=== PATIENT | female | born 1970 | race Caucasian/White ===

== ENCOUNTER 2019-06-10 07:07 | Emergency (ER) | payer OTHER ==
--- NOTE | 2019-06-10 08:46 | RADIOLOGY REPORT (SQ) ---
EXAM DESCRIPTION: CHEST 2 VIEWS IMAGES COMPLETED DATE/TIME: 06/10/2019 8:32 am REASON FOR STUDY: Hemoptysis COMPARISON: None. EXAM PARAMETERS: NUMBER OF VIEWS: two views TECHNIQUE: Digital Frontal and Lateral radiographic views of the chest acquired. RADIATION DOSE: NA LIMITATIONS: none FINDINGS: LUNGS AND PLEURA: No opacities, masses or pneumothorax. No pleural effusion. MEDIASTINUM AND HILAR STRUCTURES: No masses or contour abnormalities. HEART AND VASCULAR STRUCTURES: Heart normal size. No evidence for failure. BONES: Serpiginous thoracolumbar curvature. HARDWARE: None in the chest. OTHER: No other significant finding. IMPRESSION: NO ACUTE RADIOGRAPHIC FINDING IN THE CHEST. TECHNICAL DOCUMENTATION: JOB ID: [id number] 2010 [employer]- All Rights Reserved Reading location - IP/workstation name: [email or web address]
[2019-06-10 08:59] LABS: HEMATOCRIT 31.1 % (36.0-47.0); HEMOGLOBIN 10.8 g/dL (12.0-15.5); MEAN CORPUSCULAR HEMOGLOBIN 36.9 pg (27.0-33.4); MEAN CORPUSCULAR HGB CONC 34.8 g/dL (32.0-36.0); MEAN CORPUSCULAR VOLUME 106 fl (80-97); RED BLOOD COUNT 2.94 10^6/uL (3.72-5.28); RED CELL DISTRIBUTION WIDTH 16.5 % (11.5-14.0); WHITE BLOOD COUNT 2.2 10^3/uL (4.0-10.5)
[2019-06-10 09:00] LABS: INTERNATIONAL RATION (INR) 1.11; PROTHROMBIN TIME 14.3 SEC (11.4-15.4)
[2019-06-10 09:03] LABS: D-DIMER 0.54 ug/mL (0.00-0.50)
[2019-06-10 09:20] LABS: ALBUMIN 3.8 g/dL (3.5-5.0); ALKALINE PHOSPHATASE 47 U/L (38-126); ANION GAP 6 (5-19); ASPARTATE AMINO TRANSFERASE 28 U/L (14-36); BILIRUBIN,TOTAL 0.7 mg/dL (0.2-1.3); BLOOD UREA NITROGEN 14 mg/dL (7-20); CALCIUM 8.8 mg/dL (8.4-10.2); CARBON DIOXIDE 26 mmol/L (22-30); CHLORIDE 105 mmol/L (98-107); GLUCOSE 85 mg/dL (75-110); POTASSIUM 4.3 mmol/L (3.6-5.0); TOTAL PROTEIN 6.8 g/dL (6.3-8.2)
[2019-06-10 09:27] LABS: PLATELET COUNT 91 10^3/uL (150-450)
[2019-06-10 09:28] LABS: ABSOLUTE LYMPHOCYTES# (MANUAL) 1.6 10^3/uL (0.5-4.7); ANISOCYTOSIS SLIGHT; BASOPHILS % (MANUAL) 0 % (0-2); EOSINOPHILS % (MANUAL) 0 % (0-6); LYMPHOCYTES % (MANUAL) 72 % (13-45); MONOCYTES % (MANUAL) 0 % (3-13); NUCLEATED RED BLOOD CELLS 2 /100 WBC (0); PLATELET COMMENT DECREASED; POLYCHROMASIA SLIGHT; SEGMENTED NEUTROPHILS % (MAN) 26 % (42-78); TOTAL CELLS COUNTED 100
[2019-06-10 10:13] LABS: ABSOLUTE RETICS # 0.077 10^6/uL (0.028-0.122); RETICULOCYTE COUNT (AUTO) 2.57 % (0.66-2.85)
[2019-06-10 10:19] LABS: IRON(TIBC) 131.9 ug/dL (37-170)
--- NOTE | 2019-06-10 10:45 | RADIOLOGY REPORT (SQ) ---
EXAM DESCRIPTION: CTA CHEST IMAGES COMPLETED DATE/TIME: 06/10/2019 10:22 am REASON FOR STUDY: Hemoptysis, elevated d-dimer COMPARISON: Same day radiograph TECHNIQUE: CT scan of the chest performed using helical scanning technique with dynamic intravenous contrast injection. Images reviewed with lung, soft tissue and bone windows. Reconstructed coronal and sagittal MPR images reviewed. Additional 3 dimensional post-processing performed to develop Maximal Intensity Projection images (NH P). All images stored on PACS. All CT scanners at this facility use dose modulation, iterative reconstruction, and/or weight based d osing when appropriate to reduce radiation dose to as low as reasonably achievable (ALARA). [facility]: Dose Right [facility]: CareDose [facility]: Dose Right [facility]: Teradose 4D [facility]: Deltagen CONTRAST TYPE AND DOSE: contrast/concentration: Isovue mg/ml; Total Contrast Delivered: 66.0 ml; To clarisse Saline Delivered: 80.0 ml Contrast bolus optimized for the pulmonary arteries. Not diagnostic for the aorta. RENAL FUNCTION: Creatinine 0.76 RADIATION DOSE: CT Rad equipment meets quality standard of care and radiation dose reduction techniq ues were employed. CTDIvol: 19.5 - 19.8 mGy. DLP: 659 mGy-cm. . LIMITATIONS: None. FINDINGS: LUNGS AND PLEURA: Scattered irregular nodular opacities within the lingula and right lower lobe. Largest focal nodular opacity measures 17 x 11 mm (series 4, image 46) within the right lower lobe. No pleural effusion or pneumothorax. AORTA AND GREAT VESSELS: No aneurysm. No dissection. HEART: Normal right to left ventricular ratio. Normal heart size. No pericardial effusion. No signi ficant coronary artery calcifications. PULMONARY ARTERIES: No evidence of central or lobar pulmonary embolus. Evaluation of segmental conso le segmental branches limited secondary to contrast bolus. HILAR AND MEDIASTINAL STRUCTURES: No mediastinal, hilar or axillary adenopathy. HARDWARE: None in the chest. UPPER ABDOMEN: Marked splenomegaly measuring 18 cm maximally. No other acute findings. THYROID AND OTHER SOFT TISSUES: Asymmetric soft tissue density within the left breast measuring appro ximately 2.4 cm (series 3, image 20). Unremarkable thyroid. BONES: No acute bony abnormality. No discrete lytic or blastic osseous lesions. 3D MIPS: Confirm above findings. OTHER: No other significant finding. IMPRESSION: 1. No evidence of pulmonary embolus. 2. Scattered nodular opacities greatest within the lingula and right lower lobe possibly infectious/ inflammatory although underlying lesion is not excluded. The largest discrete area within the right lower lobe measuring up to 17 mm. Recommend short-term follow-up as below. 3. Marked splenomegaly, etiology uncertain. Lymphoproliferative disorders should be considered. 4. Asymmetric soft tissue density within the left breast. Recommend correlation with mammographic h istory. Findings conveyed to Dr. Marie at 1030 hours on 06/10/2019. COMMENT: F[place]CHNER CRITERIA FOR FOLLOW-UP OF PULMONARY NODULES Incidentally detected new nodules in persons 35 or older. HIGH RISK: History of smoking or other known risk factors. >8 mm single solid nodule: LOW and HIGH RISK: consider CT, PET/CT or biopsy at 3 mo. Quality ID # [id number]: Final reports with documentation of one or more dose reduction techniques (e.g., Au tomated exposure control, adjustment of the mA and/or kV according to patient size, use of iterative reconstruction technique) TECHNICAL DOCUMENTATION: JOB ID: [id number] 2010 [employer]- All Rights Reserved Reading location - IP/workstation name: [email or web address]
[2019-06-10 11:52] VITALS: BP 131/59
[2019-06-10 12:38] LABS: PATH REVIEW PATHOLOGIST REVIEWED
--- NOTE | 2019-06-10 13:17 | ER Document Report ---
Entered by JOHNATHAN COKER SCRIBE 06/10/19 0806 Acting as scribe for:MARINA DHILLON MD ED General - General Chief Complaint: Coughing up blood Stated Complaint: COUGHING UP BLOOD Time Seen by Provider: 06/10/19 07:38 Information source: Patient Notes: This 49-year-old female presents to the emergency department complaining of hemoptysis that began this morning. Patient explains that she woke up this morning and noticed a mild wheeze. Patient states that when she coughed, she "spit into the sink and it was blood". Patient describes the blood as bright red and reports 4-5 episodes of hemoptysis this morning. Patient mentions that she felt a "gurgling in my chest" which was better after coughing. Patient's last normal menstrual period was 04/19/2019. Patient denies fever. - Related Data Allergies/Adverse Reactions: No Known Allergies Allergy (Unverified 06/10/19 10:18) Home Medications: Synthroid. Prozac. Claritin. Multi-vitamin Past Medical History - General Information source: Patient - Social History Smoking Status: Never Smoker Cigarette use (# per day): No Chew tobacco use (# tins/day): No Frequency of alcohol use: Social Drug Abuse: None Family History: Reviewed & Not Pertinent Patient has homicidal ideation: No - Medical History Medical History: Negative EENT Medical History: Reports: Other - Environmental Allergies Endocrine Medical History: Reports: Hx Hypothyroidism Renal/ Medical History: Reports: Hx Ovarian Cysts Psychiatric Medical History: Reports: Hx Depression Past Surgical History: Reports: Hx Genitourinary Surgery - Ovarian cyst removal Review of Systems - Review of Systems Constitutional: See HPI. denies: Fever EENT: No symptoms reported Cardiovascular: No symptoms reported Respiratory: See HPI, Cough, Hemoptysis, Wheezing Gastrointestinal: No symptoms reported Genitourinary: No symptoms reported Female Genitourinary: See HPI, Last menstrual period Musculoskeletal: No symptoms reported Skin: No symptoms reported Hematologic/Lymphatic: No symptoms reported Neurological/Psychological: No symptoms reported -: Yes All other systems reviewed and negative Physical Exam - Vital signs Vitals: Temp Pulse Resp BP Pulse Ox 98.0 F 76 16 130/88 H 100 06/10/19 07:10 06/10/19 07:10 06/10/19 07:10 06/10/19 07:10 06/10/19 07:10 - Notes Notes: Physical Exam: General: Alert, appears well. HEENT: Normocephalic. Atraumatic. PERRL. Extraocular movements intact. Oropharynx clear. Inner nostril has no evidence of bleeding bilaterally. Neck: Supple. Non-tender. Respiratory: No respiratory distress. Clear and equal breath sounds bilaterally. No rhonchi. When asked to cough, cough was non-productive and clear. Cardiovascular: Regular rate and rhythm. Abdominal: Normal Inspection. Non-tender. No distension. Normal Bowel Sounds. Back: No gross abnormalities. Extremities: Moves all four extremities. Upper extremities: Normal inspection. Normal ROM. Lower extremities: Normal inspection. No edema. Normal ROM. Neurological: Normal cognition. AAOx4. Normal speech. Psychological: Normal affect. Normal Mood. Skin: Warm. Dry. Normal color. Course - Vital Signs Vital signs: Temp Pulse Resp BP Pulse Ox 98.0 F 76 16 130/88 H 100 06/10/19 07:13 06/10/19 07:10 06/10/19 07:10 06/10/19 07:10 06/10/19 07:10 - Laboratory Result Diagrams: 06/10/19 08:42 06/10/19 08:42 Laboratory results interpreted by me: 06/10/19 06/10/19 08:42 08:42 WBC 2.2 L RBC 2.94 L Hgb 10.8 L Hct 31.1 L MCV 106 H MCH 36.9 H RDW 16.5 H Plt Count 91 L Seg Neuts % (Manual) 26 L Lymphocytes % (Manual) 72 H Monocytes % (Manual) 0 L Abs Neuts (Manual) 0.6 L Abs Monocytes (Manual) 0.0 L D-Dimer 0.54 H - Diagnostic Test Radiology reviewed: Image reviewed, Reports reviewed - CTA chest shows scattered nodular opacities greatest in the lingula and right lower lobe. The largest discrete area is measuring up to 17 mm. There is also marked splenomegaly. There is an asymmetric soft tissue density within the left breast. - Consults Dr. Gabriel Consulted provider: follow-up in office - Will see in the office on 06/15/2019 at 10:15 AM. Discharge - Discharge Clinical Impression: Hemoptysis, Pulmonary nodules/lesions, multiple, Splenomegaly, Thrombocytopenia, Macrocytic anemia Neutropenia Qualifiers: Neutropenia type: unspecified Qualified Code(s): D70.9 - Neutropenia, unspecified Condition: Stable Disposition: HOME, SELF-CARE Additional Instructions: Hemoptysis Hemoptysis (coughing up blood) can occur with many different diseases. Most commonly, it's due to an infection such as bronchitis. Although alarming, the presence of blood in the phlegm doesn't change the treatment of bronchitis or pneumonia. The physician has evaluated you to see if there is evidence of an underlying problem requiring further evaluation. If he has recommended further tests, you should follow up as instructed. Hemoptysis without an identifiable cause can be due to tumors or hidden infections. Return for a recheck if the blood increases greatly in amount, or if you develop shortness of breath, high fever, severe chest pain, or other alarming new symptoms. Your work-up today revealed a blood disorders showing a macrocytic anemia, neutropenia, and thrombocytopenia. This means abnormally large red blood cells, abnormally low number of neutrophil white blood cells and an abnormally low number of platelets. The CT scan showed scattered nodular opacities in the right lung, a very enlarged spleen, and a soft tissue density in the left breast. I have scheduled an appointment for you with Dr. Gabriel with [facility] oncology for June 15, 2019 at 10:15 AM. Try to get copies of your lab work that was done while you lived in [place]. RETURN TO THE EMERGENCY ROOM IF ANY NEW OR WORSENING SYMPTOMS. Referrals: PRECIOUS GABRIEL MD [ACTIVE STAFF] - 06/15/19 10:15 am I personally performed the services described in the documentation, reviewed and edited the documentation which was dictated to the scribe in my presence, and it accurately records my words and actions.
== END 2019-06-10 11:52 | disposition home or self-care (01) ==
LOC: ER 07:07
DX: R04.2 Hemoptysis (principal); R91.8 Other nonspecific abnormal finding of lung field; R16.1 Splenomegaly, not elsewhere classified; D69.6 Thrombocytopenia, unspecified; D53.9 Nutritional anemia, unspecified; D70.9 Neutropenia, unspecified; R06.2 Wheezing
CPT/HCPCS: 36415; 71046; 71275; 80053; 82607; 82728; 82746; 83540; 83550; 84703; 85025; 85045; 85379; 85610; 99284

== ENCOUNTER 2019-06-27 08:42 | Day surgery (SDC) | payer OTHER ==
[2019-06-27 09:14] LABS: HEMATOCRIT 31.5 % (36.0-47.0); HEMOGLOBIN 11.1 g/dL (12.0-15.5); MEAN CORPUSCULAR HEMOGLOBIN 36.5 pg (27.0-33.4); MEAN CORPUSCULAR HGB CONC 35.1 g/dL (32.0-36.0); MEAN CORPUSCULAR VOLUME 104 fl (80-97); RED BLOOD COUNT 3.03 10^6/uL (3.72-5.28); RED CELL DISTRIBUTION WIDTH 16.8 % (11.5-14.0); WHITE BLOOD COUNT 2.4 10^3/uL (4.0-10.5)
[2019-06-27 09:34] LABS: BLOOD UREA NITROGEN 14 mg/dL (7-20)
[2019-06-27 09:39] LABS: PLATELET COUNT 90 10^3/uL (150-450)
[2019-06-27 09:42] LABS: ABSOLUTE LYMPHOCYTES# (MANUAL) 1.7 10^3/uL (0.5-4.7); BASOPHILS % (MANUAL) 0 % (0-2); EOSINOPHILS % (MANUAL) 2 % (0-6); MONOCYTES % (MANUAL) 1 % (3-13); SEGMENTED NEUTROPHILS % (MAN) 25 % (42-78); TOTAL CELLS COUNTED 100
[2019-06-27 09:43] LABS: ANISOCYTOSIS 1+; OVALOCYTES SLIGHT; POIKILOCYTOSIS SLIGHT; POLYCHROMASIA SLIGHT
[2019-06-27 09:44] LABS: LYMPHOCYTES % (MANUAL) 67 % (13-45); PLATELET COMMENT DECREASED
[2019-06-27] MEDS ORDERED: FENTANYL CITRATE INJ/PF 100 MCG/2 ML AMPUL ONE (10:56)
[2019-06-27] MEDS ORDERED: MIDAZOLAM 2 MG/2 ML INJ ONE (10:56)
[2019-06-27 11:11] LABS: INTERNATIONAL RATION (INR) 1.16; PROTHROMBIN TIME 14.9 SEC (11.4-15.4)
[2019-06-27 11:12] LABS: PARTIAL THROMBOPLASTIN TIME 27.3 SEC (23.5-35.8)
--- NOTE | 2019-06-27 12:03 | RADIOLOGY REPORT (SQ) ---
EXAM DESCRIPTION: CT BIOPSY BONE DEEP; CT NEEDLE PLACEMENT IMAGES COMPLETED DATE/TIME: 06/27/2019 11:45 am REASON FOR STUDY: OTHER PANCYTOPENIA D61.818 OTHER PANCYTOPENIA COMPARISON: None. TECHNIQUE: CT guided biopsy of the left iliac crest performed with conscious sedation. CT Fluoroscopy Time: 4.[address] scanners at this facility use dose modulation, iterative reconstruction, and/or weight based d osing when appropriate to reduce radiation dose to as low as reasonably achievable (ALARA). [facility]: Dose Right [facility]: CareDose [facility]: Dose Right [facility]: Teradose 4D [facility]: [employer]ic RADIATION DOSE: mGy. FINDINGS: After obtaining informed consent and explaining the risks and benefits of conscious sedati on,the patient agreed to the procedure. Prior to the procedure, a time out was performed to verify th e patient's identity and planned procedure. IV conscious sedation was administered and physician direction by the registered nurse using 2.0 mill igrams of Versed and 100 micrograms of fentanyl. Physiologic monitoring was provided before, during, and after sedation. The total sedation time was 35 minutes. Documentation face to face time, the performing proceduralist, spent monitoring the patient: [address] scanning was performed to localize the percutaneous site for the biopsy approach. After sterile skin prep and local lidocaine for skin and deep tissue anesthesia, a coaxial biopsy nee dle was used to obtain a bone marrow aspirate, and a bone marrow core of tissue. The biopsy tissue wa s received by Dr. Scherer's nurse to be sent out for evaluation. There were no immediate complication s. Pathology is pending at the time of dictation. IMPRESSION: CT GUIDED ASPIRATE AND CORE BIOPSY OF THE LEFT POSTERIOR ILIAC CREST BONE MARROW PERFORM ED WITHOUT IMMEDIATE COMPLICATION. PATHOLOGY PENDING. IV CONSCIOUS SEDATION WITHOUT COMPLICATION. COMMENT: Quality ID 145: Final reports for procedures using fluoroscopy that document radiation exp osure indices, or exposure time and number of fluorographic images (if radiation exposure indices are not available) Patient medication list reviewed: Yes- Quality ID# [id number]:Eligible professional attests to documenting i n the medical record they obtained, updated, or reviewed the patient's current medications.. TECHNICAL DOCUMENTATION: JOB ID: [id number] Quality ID# 436: Final reports with documentation of one or more dose reduction techniques (e.g., Aut omated exposure control, adjustment of the mA and/or kV according to patient size, use of iterative r econstruction technique) 2010 [employer]- All Rights Reserved Reading location - IP/workstation name: [email or web address]
--- NOTE | 2019-06-27 12:03 | RADIOLOGY REPORT (SQ) ---
EXAM DESCRIPTION: CT BIOPSY BONE DEEP; CT NEEDLE PLACEMENT IMAGES COMPLETED DATE/TIME: 06/27/2019 11:45 am REASON FOR STUDY: OTHER PANCYTOPENIA D61.818 OTHER PANCYTOPENIA COMPARISON: None. TECHNIQUE: CT guided biopsy of the left iliac crest performed with conscious sedation. CT Fluoroscopy Time: 4.[address] scanners at this facility use dose modulation, iterative reconstruction, and/or weight based d osing when appropriate to reduce radiation dose to as low as reasonably achievable (ALARA). [facility]: Dose Right [facility]: CareDose [facility]: Dose Right [facility]: Teradose 4D [facility]: [employer] RADIATION DOSE: mGy. FINDINGS: After obtaining informed consent and explaining the risks and benefits of conscious sedati on,the patient agreed to the procedure. Prior to the procedure, a time out was performed to verify th e patient's identity and planned procedure. IV conscious sedation was administered and physician direction by the registered nurse using 2.0 mill igrams of Versed and 100 micrograms of fentanyl. Physiologic monitoring was provided before, during, and after sedation. The total sedation time was 35 minutes. Documentation face to face time, the performing proceduralist, spent monitoring the patient: [address] scanning was performed to localize the percutaneous site for the biopsy approach. After sterile skin prep and local lidocaine for skin and deep tissue anesthesia, a coaxial biopsy nee dle was used to obtain a bone marrow aspirate, and a bone marrow core of tissue. The biopsy tissue wa s received by Dr. Scherer's nurse to be sent out for evaluation. There were no immediate complication s. Pathology is pending at the time of dictation. IMPRESSION: CT GUIDED ASPIRATE AND CORE BIOPSY OF THE LEFT POSTERIOR ILIAC CREST BONE MARROW PERFORM ED WITHOUT IMMEDIATE COMPLICATION. PATHOLOGY PENDING. IV CONSCIOUS SEDATION WITHOUT COMPLICATION. COMMENT: Quality ID 145: Final reports for procedures using fluoroscopy that document radiation exp osure indices, or exposure time and number of fluorographic images (if radiation exposure indices are not available) Patient medication list reviewed: Yes- Quality ID# 130:Eligible professional attests to documenting i n the medical record they obtained, updated, or reviewed the patient's current medications.. TECHNICAL DOCUMENTATION: JOB ID: [id number] Quality ID# 436: Final reports with documentation of one or more dose reduction techniques (e.g., Aut omated exposure control, adjustment of the mA and/or kV according to patient size, use of iterative r econstruction technique) 2010 [employer]- All Rights Reserved Reading location - IP/workstation name: [email or web address]
[2019-06-27 14:13] VITALS: BP 119/65
[2019-06-28 13:12] LABS: PATH REVIEW PATHOLOGIST REVIEWED
== END 2019-06-27 14:15 | disposition home or self-care (01) ==
LOC: RAD 08:42
PROVIDERS: ATTEND Internal Medicine
DX: D61.818 Other pancytopenia (principal); E03.9 Hypothyroidism, unspecified; D64.9 Anemia, unspecified; R16.1 Splenomegaly, not elsewhere classified; R22.2 Localized swelling, mass and lump, trunk
CPT/HCPCS: 36415; 84520; 82565; 85025; 85610; 85730; 77012; 20225; J2250; J3010

== ENCOUNTER → 2019-07-05 | Outpatient (CLI) | payer OTHER ==
--- NOTE | 2019-07-05 16:41 | RADIOLOGY REPORT (SQ) ---
EXAM DESCRIPTION: PET CT SKULL/THIGH IMAGES COMPLETED DATE/TIME: 07/05/2019 2:49 pm REASON FOR STUDY: C91.10 CHRONIC LYMPHOCYTIC LEUK OF B-CELL TYPE NOT ACHIEVE REMIS C91.10 CHRONIC L YMPHOCYTIC LEUK OF B-CELL TYPE NOT ACHIEVE R COMPARISON: CT of the chest with contrast from 06/10/2019. RADIONUCLIDE AND DOSE: 10.1 mCi F18 FDG The route of agent administration: Intravenous FASTING BLOOD SUGAR: 111 mg/dl CONTRAST TYPE AND DOSE: No CT contrast given. TECHNIQUE: Blood glucose level was verified. Above dose of FDG was injected intravenously. 2-D seg mented attenuation correction images were obtained from the base of the skull to the midthighs. Nonc ontrast CT images were obtained for attenuation correction and fusion with emission images. CT image s were performed without oral or intravenous contrast and are not sensitive for parenchymal lesions. A series of overlapping emission PET images were obtained. Images reviewed and manipulated at [facility] [employer] work station by the radiologist. Images stored on PACS. LIMITATIONS: None. FINDINGS: HEAD AND NECK: No areas of abnormal metabolic activity in the soft tissues of the head and neck. CHEST: Asymmetric density in the upper outer quadrant of the left breast (image 62 of series 3) that demonstrates minimal FDG uptake (maximum SUV of 2). ABDOMEN AND PELVIS: The liver demonstrates homogeneous FDG uptake with an average SUV of 3. The sple en is enlarged and it measures 14.9 cm in AP diameter. There is expected physiologic activity throug hout the gastrointestinal and genitourinary tracts. No areas of abnormal metabolic activity are iden tified in the abdomen and pelvis. PROXIMAL LOWER EXTREMITIES: No areas of abnormal metabolic activity in the soft tissues of the lower extremities. BONES: No areas of abnormal metabolic activity in the imaged axial and appendicular skeleton. ADDITIONAL CT FINDINGS: There are borderline enlarged upper mesenteric, precaval, post caval, lateral caval, preaortic, lateral aortic and common iliac lymph nodes that measure up to 11 mm in short axis diameter ; these lymph nodes demonstrate no abnormal FDG uptake on PET. OTHER: No other findings. IMPRESSION: 1. Borderline enlarged and enlarged upper mesenteric mediastinal adenopathy that demons trate no abnormal FDG uptake on PET. 2. Splenomegaly. 3. Asymmetric density in the upper outer quadrant of the left breast (image 62 of series 3) that dem onstrates minimal FDG uptake (maximum SUV of 2) - correlation with mammogram is recommended. TECHNICAL DOCUMENTATION: JOB ID: [id number] 2010 [employer]- All Rights Reserved Reading location - IP/workstation name: [email or web address]
== END ==
LOC: RAD 08:50
PROVIDERS: ATTEND Internal Medicine
DX: C91.10 Chronic lymphocytic leukemia of B-cell type not having achieved remission (principal)
CPT/HCPCS: 78815; A9552

== ENCOUNTER 2019-10-24 05:15 | Inpatient (IN) | payer OTHER ==
[2019-10-24 06:02] LABS: ARTERIAL BLOOD BASE EXCESS -0.5 mmol/L; ARTERIAL BLOOD FIO2 15 FLOW RATE; ARTERIAL BLOOD HCO3 21.1 mmol/L (20-24); ARTERIAL BLOOD PCO2 26.5 mmHg (35-45); ARTERIAL BLOOD PH 7.52 (7.35-7.45); ARTERIAL BLOOD PO2 54.7 mmHg (80-100); ARTERIAL BLOOD TOTAL CO2 21.9 mmol/L (21-25)
[2019-10-24 06:16] LABS: HEMATOCRIT 33.8 % (36.0-47.0); HEMOGLOBIN 11.5 g/dL (12.0-15.5); MEAN CORPUSCULAR HEMOGLOBIN 35.1 pg (27.0-33.4); MEAN CORPUSCULAR HGB CONC 33.9 g/dL (32.0-36.0); MEAN CORPUSCULAR VOLUME 103 fl (80-97); PLATELET COUNT 158 10^3/uL (150-450); RED BLOOD COUNT 3.27 10^6/uL (3.72-5.28); RED CELL DISTRIBUTION WIDTH 17.8 % (11.5-14.0); WHITE BLOOD COUNT 2.8 10^3/uL (4.0-10.5)
[2019-10-24 06:33] LABS: ALBUMIN 3.9 g/dL (3.5-5.0); ALKALINE PHOSPHATASE 57 U/L (38-126); ANION GAP 13 (5-19); ASPARTATE AMINO TRANSFERASE 67 U/L (14-36); BILIRUBIN,DIRECT 0.6 mg/dL (0.0-0.4); BILIRUBIN,TOTAL 1.7 mg/dL (0.2-1.3); BLOOD UREA NITROGEN 15 mg/dL (7-20); CALCIUM 8.5 mg/dL (8.4-10.2); CARBON DIOXIDE 26 mmol/L (22-30); CHLORIDE 94 mmol/L (98-107); GLUCOSE 183 mg/dL (75-110); POTASSIUM 3.6 mmol/L (3.6-5.0); TOTAL PROTEIN 7.2 g/dL (6.3-8.2)
[2019-10-24 06:45] LABS: ABSOLUTE LYMPHOCYTES# (MANUAL) 1.5 10^3/uL (0.5-4.7); ABSOLUTE MONOCYTES # (MANUAL) 0.2 10^3/uL (0.1-1.4); BASOPHILS % (MANUAL) 0 % (0-2); LYMPHOCYTES % (MANUAL) 38 % (13-45); MONOCYTES % (MANUAL) 7 % (3-13); SEGMENTED NEUTROPHILS % (MAN) 41 % (42-78); TOTAL CELLS COUNTED 100
[2019-10-24 06:46] LABS: ANISOCYTOSIS 1+; POLYCHROMASIA SLIGHT
[2019-10-24 06:47] LABS: PLATELET CLUMPS PRESENT; PLATELET COMMENT ADEQUATE
[2019-10-24] MEDS ORDERED: ONDANSETRON HCL INJ/PF 4 MG/2 ML SDV IV ONE (06:48)
[2019-10-24 07:11] LABS: EOSINOPHILS % (MANUAL) 0 % (0-6)
--- NOTE | 2019-10-24 07:12 | EKG REPORT ---
SEVERITY:- OTHERWISE NORMAL ECG - SINUS TACHYCARDIA : Confirmed by: Ezequiel Zarco 24-Oct-2019 07:12:19
--- NOTE | 2019-10-24 07:23 | RADIOLOGY REPORT (SQ) ---
CLINICAL HISTORY: difficulty breathing; hypoxia; COVID + COMPARISON: 10/24/2019. TECHNIQUE: XR CHEST 1 VIEW 10/24/2019 12:00 AM CDT FINDINGS: The heart is mildly enlarged. There are moderate patchy mid and lower lung areas of airspace disease. There is no pleural effusion. There is no pneumothorax. There are no acute osseous findings. IMPRESSION: Unchanged bilateral pneumonia.
[2019-10-24] MEDS ORDERED: CEFEPIME 1 GM/D5W RTU 1 GM/50 ML RTUPB IV ONE (07:45)
[2019-10-24] MEDS ORDERED: NORMAL SALINE 1000 ML 1,000 ML IV ONE (07:46)
[2019-10-24] MEDS ORDERED: VANCOMYCIN HCL INJ 1000 MG VIAL IV ONE (07:46)
[2019-10-24 09:48] LABS: APPEARANCE,URINE SLIGHTLY-CLOUDY; BILIRUBIN,URINE NEGATIVE (NEGATIVE); COLOR,URINE YELLOW; GLUCOSE, URINE NEGATIVE (NEGATIVE); KETONES,URINE NEGATIVE (NEGATIVE); LEUKOCYTE ESTERASE,URINE NEGATIVE (NEGATIVE); NITRITE,URINE NEGATIVE (NEGATIVE); PROTEIN,URINE 30 mg/dL (NEGATIVE); URINE SPECIFIC GRAVITY 1.014; UROBILINOGEN,URINE NEGATIVE mg/dL (<2.0)
--- NOTE | 2019-10-24 10:08 | RADIOLOGY REPORT (SQ) ---
EXAM DESCRIPTION: CTA CHEST IMAGES COMPLETED DATE/TIME: 10/24/2019 9:47 am REASON FOR STUDY: sobr/covid postive COMPARISON: 07/05/2019 TECHNIQUE: CT scan of the chest performed using helical scanning technique with dynamic intravenous contrast injection. Images reviewed with lung, soft tissue and bone windows. Reconstructed coronal and sagittal MPR images reviewed. Additional 3 dimensional post-processing performed to develop Maximal Intensity Projection images (OR P). All images stored on PACS. All CT scanners at this facility use dose modulation, iterative reconstruction, and/or weight based d osing when appropriate to reduce radiation dose to as low as reasonably achievable (ALARA). [facility]: Dose Right [facility]: CareDose [facility]: Dose Right [facility]: Teradose 4D [facility]: [employer] CONTRAST TYPE AND DOSE: contrast/concentration: Isovue 350.00 mmol/ml; Total Contrast Delivered: 67. 0 ml; Total Saline Delivered: 57.0 ml Contrast bolus adequate for pulmonary arteries and aorta. RENAL FUNCTION: Creatinine 0.98 RADIATION DOSE: CT Rad equipment meets quality standard of care and radiation dose reduction techniq ues were employed. CTDIvol: 19.8 - 29.9 mGy. DLP: 1051 mGy-cm. . LIMITATIONS: None. FINDINGS: LUNGS AND PLEURA: Extensive multifocal bilateral areas of consolidation and ground-glass a ttenuation throughout the lungs. No pneumothorax. No significant pleural effusion. Evaluation for pulmonary nodules and masses limited secondary to multifocal airspace disease. AORTA AND GREAT VESSELS: No aneurysm. No dissection. HEART: Normal heart size. No pericardial effusion. Normal right to left ventricular ratio. No exte nsive coronary atherosclerosis. PULMONARY ARTERIES: No emboli visualized in the main pulmonary arteries or the segmental branches. HILAR AND MEDIASTINAL STRUCTURES: No identified masses or abnormal nodes. HARDWARE: None in the chest. UPPER ABDOMEN: Splenomegaly measuring 16 cm. THYROID AND OTHER SOFT TISSUES: No masses. No adenopathy. BONES: No acute or significant finding. 3D MIPS: Confirm above findings. OTHER: No other significant finding. IMPRESSION: 1. Extensive multifocal bilateral areas of consolidation and ground-glass attenuation c ompatible with infectious/ inflammatory etiology, including Covid-19 pneumonia. 2. No pulmonary embolus. 3. Splenomegaly. COMMENT: Quality ID # 436: Final reports with documentation of one or more dose reduction techniques (e.g., Automated exposure control, adjustment of the mA and/or kV according to patient size, use of iterative reconstruction technique) TECHNICAL DOCUMENTATION: JOB ID: [id number] 2010 [employer]- All Rights Reserved Reading location - IP/workstation name: [email or web address]
[2019-10-24 10:33] LABS: A TYPE INFLUENZA AG NEGATIVE (NEGATIVE); B INFLUENZA AG NEGATIVE (NEGATIVE)
[2019-10-24] MEDS ORDERED: ACETAMINOPHEN 325 MG TABLET PO PRN (12:09)
[2019-10-24] MEDS ORDERED: GUAIFENESIN SYRP 200 MG/10 ML UDC PO PRN (12:09)
[2019-10-24] MEDS ORDERED: ALBUTEROL SULFATE 0.083% NEB 2.5 MG/3 ML AMPUL NEB PRN (12:09)
[2019-10-24] MEDS ORDERED: HEPARIN SODIUM,PORCINE/D5W 25,000 UNIT/250 ML RTUINJ IV PRN (12:31)
[2019-10-24] MEDS ORDERED: PHARMACY COMMUNICATION ORDER MC NR (12:45)
[2019-10-24] MEDS ORDERED: HEPARIN SOD (PORCINE) 1,000 UNIT/ML 10 ML VIAL IV ONE (13:00)
[2019-10-24 13:07] LABS: PATH REVIEW PATHOLOGIST REVIEWED
[2019-10-24] MEDS: CEFTRIAXONE 1 GM/D5W RTU 1 GM/50 ML RTUPB IV SCH (13:30)
[2019-10-24] MEDS: DEXAMETHASONE SOD PHOSPHATE INJ 4 MG/1 ML VIAL IV SCH ×2 (13:30→21:49)
[2019-10-24] MEDS: IPRATROPIUM/ALBUTEROL 0.5-2.5 MG/3 ML AMPUL NEB SCH ×2 (13:34→20:55)
[2019-10-24] MEDS ORDERED: ACETAMINOPHEN 650 MG SUPP.RECT PR ONE (13:47)
[2019-10-24 13:49] LABS: INTERNATIONAL RATION (INR) 1.27
[2019-10-24] MEDS ORDERED: NORMAL SALINE 250 ML IV PRN ×2 (13:49)
[2019-10-24 13:55] LABS: ARTERIAL BLOOD BASE EXCESS 1.4 mmol/L; ARTERIAL BLOOD H2CO3 1.07 mmol/L (1.05-1.35); ARTERIAL BLOOD O2 SATURATION 89.7 % (94-98); ARTERIAL BLOOD PCO2 35.6 mmHg (35-45); ARTERIAL BLOOD PH 7.47 (7.35-7.45); ARTERIAL BLOOD PO2 53.2 mmHg (80-100); ARTERIAL BLOOD TOTAL CO2 26.1 mmol/L (21-25)
[2019-10-24 13:59] LABS: ARTERIAL BLOOD FIO2 80%
[2019-10-24] MEDS: AZITHROMYCIN 500 MG in DEXTROSE 5%-WATER 250 ML IV SCH (14:01)
--- NOTE | 2019-10-24 14:28 | PDOC H&P ---
History of Present Illness Admission Date/PCP: 10/24/19 12:56 Patient complains of: COVID positive, shortness of breath History of Present Illness: FRANCES ENGLISH is a 49 year old female with past medical history significant for known COVID positive 10/19/2019, hairy cell leukemia, and hypothyroidism. She presented to the emergency department on 10/23/2019 with a complaint of increased shortness of breath, hemoptysis, and generalized weakness. Evaluation in the emergency department revealed: tachypnea with O2 sats in the 30s, CBC notable for leukopenia (2.8) and neutropenia (1.1). Chemistry significant for Hyponatremia, elevated BNP (1590), elevated CK (1484), elevated LDH (362), troponin I (0.073), and ferritin within normal limits. Coagulation studies notable for elevated D-dimer (3.37). On ABG she was not acidotic with PCO2 26.5 and PO2 54.7. Rapid influenza A and B were negative. Chest x-ray noted bilateral pneumonia. Chest/abdomen CTA significant for Extensive multifocal bilateral areas of consolidation and groundglass attenuation compatible with infectious inflammatory etiology including COVID-19 pneumonia and splenomegaly. She was started on BiPAP and treated with a single dose of cephapirin and vancomycin. She is referred to the hospitalist service for further evaluation and management of the above-stated complaints and findings. Past Medical History Cardiac Medical History: Reports: None Pulmonary Medical History: Reports: Bronchitis EENT Medical History: Reports: None Neurological Medical History: Reports: None Endocrine Medical History: Reports: Hypothyroidism Renal/ Medical History: Reports: None Malignancy Medical History: Reports: Leukemia - Hairy cell GI Medical History: Reports: None Musculoskeltal Medical History: Reports: Arthritis - LOWER BACK Skin Medical History: Reports: None Psychiatric Medical History: Reports: Depression Hematology: Reports: None Infectious Medical History: Reports: None Social History Information Source: Patient Lives with: Family Smoking Status: Never Smoker Electronic Cigarette use?: No Frequency of Alcohol Use: Social Hx Recreational Drug Use: No Hx Prescription Drug Abuse: No - Advance Directive Resuscitation Status: Full Code Family History Family History: Reviewed & Not Pertinent Parental Family History Reviewed: Yes Children Family History Reviewed: Yes Sibling(s) Family History Reviewed.: Yes Medication/Allergy Home Medications: Fluoxetine HCl [Prozac 20 mg Capsule] 20 mg PO DAILY 06/27/19 Albuterol Sulfate [Albuterol Sulfate Hfa] 2 puff IH Q4 10/24/19 Cyanocobalamin (Vitamin B-12) [Vitamin B-12 Inj 1000 Mcg/1 ml Vial] 1,000 mcg IM [id number] 10/24/19 Levothyroxine Sodium 88 mcg PO DAILY 10/24/19 Allergies/Adverse Reactions: rofecoxib [From Vioxx] Allergy (Verified 06/27/19 09:31) Review of Systems Constitutional: PRESENT: fever(s), weakness. ABSENT: headache(s) Eyes: ABSENT: visual disturbances Nose, Mouth, and Throat: ABSENT: headache(s), sore throat Cardiovascular: ABSENT: chest pain, palpitations Respiratory: PRESENT: as per HPI Gastrointestinal: ABSENT: abdominal pain, diarrhea, nausea, vomiting Integumentary: ABSENT: diaphoresis, rash Neurological: PRESENT: weakness. ABSENT: numbness, paresthesias, syncope Psychiatric: ABSENT: homidical ideation Endocrine: ABSENT: cold intolerance, heat intolerance, polyphagia, polyuria Hematologic/Lymphatic: ABSENT: easy bleeding Physical Exam Vital Signs: Temp Pulse Resp BP Pulse Ox 100.2 F 106 H 38 H 106/68 99 10/24/19 05:55 10/24/19 05:55 10/24/19 12:21 10/24/19 12:21 10/24/19 12:21 Intake & Output 10/23/19 10/24/19 10/25/19 06:59 06:59 06:59 Intake Total 50 Output Total 500 Balance -450 Weight 95.254 kg General appearance: PRESENT: cooperative, obese, other - In apparent distress Head exam: PRESENT: atraumatic, normocephalic Eye exam: PRESENT: EOMI, PERRLA. ABSENT: scleral icterus Ear exam: PRESENT: normal external ear exam. ABSENT: bleeding, drainage Mouth exam: PRESENT: dry mucosa, tongue midline Neck exam: PRESENT: full ROM. ABSENT: tenderness Respiratory exam: PRESENT: decreased breath sounds - bilaterally, rhonchi, tachypnea, other - Patient utilizing BiPAP machine during exam.. ABSENT: accessory muscle use, retraction Cardiovascular exam: PRESENT: RRR, +S1, +S2. ABSENT: diastolic murmur, systolic murmur Pulses: PRESENT: normal dorsalis pedis pul GI/Abdominal exam: PRESENT: normal bowel sounds, soft. ABSENT: distended, firm, guarding, rigid, tenderness Rectal exam: PRESENT: deferred Gentrourinary exam: PRESENT: indwelling catheter Extremities exam: PRESENT: full ROM. ABSENT: clubbing, pedal edema, tenderness Musculoskeletal exam: PRESENT: full ROM. ABSENT: deformity, dislocation Neurological exam: PRESENT: alert, awake, oriented to person, oriented to place, oriented to time, oriented to situation, CN II-XII grossly intact Psychiatric exam: PRESENT: appropriate affect, normal mood Skin exam: PRESENT: intact, normal color, warm. ABSENT: erythema, rash Results Laboratory Results: 10/24/19 05:32 10/24/19 05:32 10/24/19 10/24/19 10/24/19 05:32 05:32 05:32 WBC 2.8 L RBC 3.27 L Hgb 11.5 L Hct 33.8 L MCV 103 H MCH 35.1 H MCHC 33.9 RDW 17.8 H Plt Count 158 Seg Neutrophils % Not Reportable Carbonic Acid HCO3/H2CO3 Ratio ABG pH ABG pCO2 ABG pO2 ABG HCO3 ABG O2 Saturation ABG Base Excess FiO2 Sodium 132.5 L Potassium 3.6 Chloride 94 L Carbon Dioxide 26 Anion Gap 13 BUN 15 Creatinine 0.98 Est GFR ( Amer) > 60 Glucose 183 H Calcium 8.5 Ferritin 248.00 Total Bilirubin 1.7 H AST 67 H Alkaline Phosphatase 57 Total Protein 7.2 Albumin 3.9 Urine Color Urine Appearance Urine pH Ur Specific Index Urine Protein Urine Glucose (UA) Urine Ketones Urine Blood Urine Nitrite Ur Leukocyte Esterase Urine WBC (Auto) Urine RBC (Auto) 10/24/19 10/24/19 05:33 09:11 WBC RBC Hgb Hct MCV MCH MCHC RDW Plt Count Seg Neutrophils % Carbonic Acid 0.80 L HCO3/H2CO3 Ratio 26:1 ABG pH 7.52 H ABG pCO2 26.5 L ABG pO2 54.7 L ABG HCO3 21.1 ABG O2 Saturation 92.0 L ABG Base Excess -0.5 FiO2 15 FLOW RATE Sodium Potassium Chloride Carbon Dioxide Anion Gap BUN Creatinine Est GFR ( Amer) Glucose Calcium Ferritin Total Bilirubin AST Alkaline Phosphatase Total Protein Albumin Urine Color YELLOW Urine Appearance SLIGHTLY-CLOUDY Urine pH 5.0 Ur Specific Index 1.014 Urine Protein 30 H Urine Glucose (UA) NEGATIVE Urine Ketones NEGATIVE Urine Blood LARGE H Urine Nitrite NEGATIVE Ur Leukocyte Esterase NEGATIVE Urine WBC (Auto) 1 Urine RBC (Auto) 8 10/24/19 10/24/19 10/24/19 05:32 05:32 05:32 Creatine Kinase 1484 H Troponin I 0.073 NT-Pro-B Natriuret Pep 1590 H Impressions: Chest X-Ray 10/24/19 00:00 IMPRESSION: Unchanged bilateral pneumonia. Chest/Abdomen CTA 10/24/19 07:48 IMPRESSION: 1. Extensive multifocal bilateral areas of consolidation and ground-glass attenuation compatible with infectious/ inflammatory etiology, including Covid-19 pneumonia. 2. No pulmonary embolus. 3. Splenomegaly. Assessment and Plan - Diagnosis (1) Pneumonia due to COVID-19 virus Is this a current diagnosis for this admission?: Yes Plan: Patient with +COVID test on 10/19/2019 with progressive increase in fever, cough, hemoptysis, shortness of breath, and generalized weakness. CXR and CTA supportive of pneumonia secondary to COVID. Significant studies including D-dimer, CK, LDH indicitive of COVID. -Patient on isolation, admitted to [facility]. -Antibiotic regimen of Azithromycin and Ceftriaxone initiated. -Anti-viral therapy of Remdesivir initiated. -Steroid therapy of Dexamethasone initiated. -Vitamin supplementation with zinc, vitamin C, vitamin D3 and melatonin initiated. -Convalescent serum therapy initiated. -High dose heparin therapy initiated. -As she has a history of bronchitis will initiate duoneb treatments q6 hours. -Monitor patient's symptoms and disease progression closely. (2) Acute respiratory failure with hypoxia Is this a current diagnosis for this admission?: Yes Plan: Patient initially found to be hypoxic on room air with O2 sats in the 30s. CPAP treatment initiated. -1 hour ABG pending -Respiratory consulted. -Continuous pulse Ox monitor (3) Elevated brain natriuretic peptide (BNP) level Is this a current diagnosis for this admission?: Yes Plan: Patient denies known history of heart failure. Outside of current symptoms patient denies history of shortness of breath, orthopnea, lower extremity edema, or weight gain. No signs of fluid overload noted on physical exam. Suspect elevated BNP secondary to acute respiratory distress. Will repeat study upon improvement of current disease process to evaluate patient's baseline BNP. (4) Hairy cell leukemia Qualifiers: Leukemia Active/Remission status: without remission Qualified Code(s): C91.40 - Hairy cell leukemia not having achieved remission Is this a current diagnosis for this admission?: Yes Plan: Patient is followed by Dr. Scherer, oncology, regarding diagnosis of hairy cell leukemia. Dr. Scherer was consulted today and informs me that patient was initially diagnosed 4-5 months ago. Therapy has not yet been initiated due to coronavirus pandemic and risk of prolonged immunosuppression. COVID treatment options were discussed with Dr. Hankins in detail, including use of convalescent plasma. He is agreeing with current treatment plan including treatment with convalescent plasma. He is agreeing to see the patient via telemed and will provide further consult as needed. (5) Elevated troponin I level Is this a current diagnosis for this admission?: Yes Plan: Likely elevated secondary to respiratory failure. EKG reassuring. Monitor trending troponins Monitor on telemetry. (6) Elevated CK Is this a current diagnosis for this admission?: Yes Plan: Likely related to dehydration in the setting of pneumonia. Will rehydrate and repeat with am lab work. Monitor renal function. (7) Hypothyroid Qualifiers: Hypothyroidism type: acquired Qualified Code(s): E03.9 - Hypothyroidism, unspecified Is this a current diagnosis for this admission?: Yes Plan: Continue with home treatment regimen. (8) Obesity (BMI 30-39.9) Is this a current diagnosis for this admission?: Yes Plan: Lifestyle modification and dietary discretion encouraged. Cardiac diet initiated. - Time Time Spent with patient: 25-34 minutes Medications reviewed and adjusted accordingly: Yes Anticipated Discharge Disposition: Home, Self Care Anticipated Discharge Timeframe: Pending disease progression - Inpatient Certification Based on my medical assessment, after consideration of the patient's comorbidities, presenting symptoms, or acuity I expect that the services needed warrant INPATIENT care.: Yes I certify that my determination is in accordance with my understanding of Medicare's requirements for reasonable and necessary INPATIENT services [42 CFR 412.3e].: Yes Medical Necessity: Failure to Improve With Outpatient Therapy, Significant Comorbidiites Make Outpatient Treatment Too Risky, Need Close Monitoring Due to Risk of Patient Decompensation, Need For Continuous Telemetry Monitoring, Need for Nebulizer Therapy and Monitoring of Response, Need for IV Antibiotics, Risk of Complication if Not Cared For in Hospital Post Hospital Care: D/C or Transfer Summary
--- NOTE | 2019-10-24 14:34 | PDOC CONSULTATION ---
Consultation Consult Date: 10/24/19 Attending physician:: FELIPA RIZZO Provider Consulted: PRECIOUS GABRIEL Consult reason:: Pt w/ known hairy cell leukemia now w/ COVID History of Present Illness Admission Date/PCP: 10/24/19 12:56 Patient complains of: SOB/PFEIFFER History of Present Illness: Patient was consulted today for this telemedicine visit due to the COVID-19 restrictions. Patient states understanding and consents to this telemedicine v isit. Patient confirmed identity with two patient identifiers. FRANCES ENGLISH is a 49 year old female with known h/o Hairy cell leukemia dx via [facility] about 4-5m ago. We elected to watch her for now given the coronavirus pandemic and risk of prolonged immunosuppression w/ treatment with upfront drug of choice cladribine. Last week pt was noted to have inc splenomegaly c/o, anorexia and we felt she was progressing when we did a phone consult. So we planned on inittiating therapy. Over last 3-4 days prior to admit pt w/ c/o of inc PFEIFFER/SOB and cough, here imaging indicated patchy infiltrates concerning for COVID and pt was tested and was positive. She is now on isolation and given her immuno compromised status along w/ symtoms being considered for convalescent plasma and has been started on remdensiver, steroids. Of note, I discussed her case w/ [facility] leukemia program, Dr. Cates, who agreed w/ taking any steps needed to treat the COVID infection. Past Medical History Cardiac Medical History: Reports: None Pulmonary Medical History: Reports: Bronchitis EENT Medical History: Reports: None Neurological Medical History: Reports: None Endocrine Medical History: Reports: Hypothyroidism Renal/ Medical History: Reports: None Malignancy Medical History: Reports: Leukemia - Hairy cell GI Medical History: Reports: None Musculoskeltal Medical History: Reports: Arthritis - LOWER BACK Skin Medical History: Reports: None Psychiatric Medical History: Reports: Depression Hematology: Reports: None Infectious Medical History: Reports: None Past Surgical History Past Surgical History: Reports: Other - [facility] Social History Lives with: Family Smoking Status: Never Smoker Electronic Cigarette use?: No Frequency of Alcohol Use: Social Hx Recreational Drug Use: No Hx Prescription Drug Abuse: No - Advance Directive Resuscitation Status: Full Code Family History Family History: Reviewed & Not Pertinent Parental Family History Reviewed: Yes Children Family History Reviewed: Yes Sibling(s) Family History Reviewed.: Yes Medication/Allergy Home Medications: Fluoxetine HCl [Prozac 20 mg Capsule] 1 cap PO DAILY 06/27/19 Levothyroxine Sodium [Synthroid 0.075 mg Tablet] 0.75 mg PO DAILY 06/27/19 Allergies/Adverse Reactions: rofecoxib [From Vioxx] Allergy (Verified 06/27/19 09:31) Review of Systems Constitutional: PRESENT: anorexia, chills, fatigue, weakness Cardiovascular: PRESENT: dyspnea on exertion Respiratory: PRESENT: cough Gastrointestinal: PRESENT: abdominal pain - related to splenomegaly Musculoskeletal: PRESENT: back pain Neurological: ABSENT: abnormal gait, abnormal speech, confusion, dizziness, focal weakness, syncope Endocrine: PRESENT: cold intolerance Physical Exam Vital Signs: Temp Pulse Resp BP Pulse Ox 100.2 F 106 H 38 H 106/68 99 10/24/19 05:55 10/24/19 05:55 10/24/19 12:21 10/24/19 12:21 10/24/19 12:21 Intake & Output 10/23/19 10/24/19 10/25/19 06:59 06:59 06:59 Intake Total 50 Output Total 500 Balance -450 Weight 95.254 kg Eye exam: ABSENT: scleral icterus Vascular exam: PRESENT: normal capillary refill Additional comments: No PE done as this is telemed visit Results Laboratory Results: 10/24/19 05:32 10/24/19 05:32 10/24/19 10/24/19 10/24/19 05:32 05:32 05:32 WBC 2.8 L RBC 3.27 L Hgb 11.5 L Hct 33.8 L MCV 103 H MCH 35.1 H MCHC 33.9 RDW 17.8 H Plt Count 158 Seg Neutrophils % Not Reportable Carbonic Acid HCO3/H2CO3 Ratio ABG pH ABG pCO2 ABG pO2 ABG HCO3 ABG O2 Saturation ABG Base Excess FiO2 Sodium 132.5 L Potassium 3.6 Chloride 94 L Carbon Dioxide 26 Anion Gap 13 BUN 15 Creatinine 0.98 Est GFR ( Amer) > 60 Glucose 183 H Calcium 8.5 Ferritin 248.00 Total Bilirubin 1.7 H AST 67 H Alkaline Phosphatase 57 Total Protein 7.2 Albumin 3.9 Urine Color Urine Appearance Urine pH Ur Specific [place] Urine Protein Urine Glucose (UA) Urine Ketones Urine Blood Urine Nitrite Ur Leukocyte Esterase Urine WBC (Auto) Urine RBC (Auto) 10/24/19 10/24/19 05:33 09:11 WBC RBC Hgb Hct MCV MCH MCHC RDW Plt Count Seg Neutrophils % Carbonic Acid 0.80 L HCO3/H2CO3 Ratio 26:1 ABG pH 7.52 H ABG pCO2 26.5 L ABG pO2 54.7 L ABG HCO3 21.1 ABG O2 Saturation 92.0 L ABG Base Excess -0.5 FiO2 15 FLOW RATE Sodium Potassium Chloride Carbon Dioxide Anion Gap BUN Creatinine Est GFR ( Amer) Glucose Calcium Ferritin Total Bilirubin AST Alkaline Phosphatase Total Protein Albumin Urine Color YELLOW Urine Appearance SLIGHTLY-CLOUDY Urine pH 5.0 Ur Specific [place] 1.014 Urine Protein 30 H Urine Glucose (UA) NEGATIVE Urine Ketones NEGATIVE Urine Blood LARGE H Urine Nitrite NEGATIVE Ur Leukocyte Esterase NEGATIVE Urine WBC (Auto) 1 Urine RBC (Auto) 8 10/24/19 10/24/19 10/24/19 05:32 05:32 05:32 Creatine Kinase 1484 H Troponin I 0.073 NT-Pro-B Natriuret Pep 1590 H Impressions: Chest X-Ray 10/24/19 00:00 IMPRESSION: Unchanged bilateral pneumonia. Chest/Abdomen CTA 10/24/19 07:48 IMPRESSION: 1. Extensive multifocal bilateral areas of consolidation and ground-glass attenuation compatible with infectious/ inflammatory etiology, including Covid-19 pneumonia. 2. No pulmonary embolus. 3. Splenomegaly. Assessment & Plan - Diagnosis (1) Hairy cell leukemia Qualifiers: Leukemia Active/Remission status: without remission Qualified Code(s): C91.40 - Hairy cell leukemia not having achieved remission Is this a current diagnosis for this admission?: Yes Plan: We were going to treat pt soon w/ cladribine but this is now on hold of course until pt recovers fully. Reassured pt that she can receive any therapies needed including plasma, antivirals and steroids to treat COVID infection. If needed, pt could also be treated with neupogen per [facility] as well. But at present would not start that. (2) Pneumonia due to COVID-19 virus Is this a current diagnosis for this admission?: Yes Plan: Agree w/ current approach. Will follow - Time Time Spent: Greater than 70 Minutes - Inpatient Certification Based on my medical assessment, after consideration of the patient's comorbidities, presenting symptoms, or acuity I expect that the services needed warrant INPATIENT care.: Yes I certify that my determination is in accordance with my understanding of Medicare's requirements for reasonable and necessary INPATIENT services [42 CFR 412.3e].: Yes Medical Necessity: Need For IV Fluids, Need For Continuous Telemetry Monitoring, Need for IV Antibiotics, Risk of Complication if Not Cared For in Hospital
[2019-10-24] MEDS ORDERED: REMDESIVIR (EUA) 200 MG in NORMAL SALINE 250 ML IV ONE (15:00)
[2019-10-24] MEDS ORDERED: HEPARIN SOD (PORCINE) 1,000 UNIT/ML 10 ML VIAL IV PRN (15:32)
--- NOTE | 2019-10-24 16:05 | ER Document Report ---
Entered by NEDA PEARCE SCRIBE 10/24/19 0750 Acting as scribe for:FABIANA ENGLISH MD ED Respiratory Problem - General Chief Complaint: Breathing Difficulty Stated Complaint: DIFFICULTY BREATHING,SPITTING UP BLOOD Time Seen by Provider: 10/24/19 06:02 Information source: Patient Notes: This 49 year old female patient presents to the emergency department today with shortness of breath. Patient states x6 days ago she began to fell sick and had a non-productive cough. Patient states she visited Urgent Care x2 days ago and was swabbed for a rapid covid, which was positive. Patient states since she has had worsening shortness of breath. Denies any fever, chills, or chest pain. 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 - Related Data Allergies/Adverse Reactions: rofecoxib [From Vioxx] Allergy (Verified 06/27/19 09:31) Past Medical History - General Information source: Patient - Social History Smoking Status: Never Smoker Cigarette use (# per day): No Frequency of alcohol use: Occasional Drug Abuse: None Family History: Reviewed & Not Pertinent Patient has homicidal ideation: No Pulmonary Medical History: Reports: Hx Bronchitis Endocrine Medical History: Reports: Hx Hypothyroidism Renal/ Medical History: Reports: Hx Ovarian Cysts Malignancy Medical History: Reports: Hx Leukemia - Hairy Cell-June 2019 Musculoskeletal Medical History: Reports Hx Arthritis - LOWER BACK Psychiatric Medical History: Reports: Hx Depression Past Surgical History: Reports: Hx Genitourinary Surgery - Ovarian cyst removal Review of Systems - Review of Systems Constitutional: See HPI. denies: Chills, Fever EENT: No symptoms reported Cardiovascular: See HPI. denies: Chest pain Respiratory: See HPI, Cough, Short of breath Gastrointestinal: No symptoms reported Genitourinary: No symptoms reported Female Genitourinary: No symptoms reported Musculoskeletal: No symptoms reported Skin: No symptoms reported Hematologic/Lymphatic: No symptoms reported Neurological/Psychological: No symptoms reported -: Yes All other systems reviewed and negative Physical Exam - Vital signs Vitals: Temp Pulse Resp BP Pulse Ox 100.2 F 106 H 37 H 105/56 L 100 10/24/19 05:55 10/24/19 05:55 10/24/19 05:55 10/24/19 05:55 10/24/19 05:55 - General General appearance: Alert, Other - Appears non-toxic - HEENT Head: Normocephalic, Atraumatic Eyes: Normal Pupils: PERRL - Respiratory Notes: 100% oxygen saturation on bipap. No evidence of air hunger. Diminished breath sounds in bilateral bases. - Cardiovascular Rhythm: Regular Heart sounds: Normal auscultation, S1 appreciated, S2 appreciated Murmur: No - Abdominal Inspection: Obese Distension: No distension Bowel sounds: Normal Tenderness: Nontender - Extremities General upper extremity: Normal inspection. No: Edema General lower extremity: Normal inspection. No: Edema - Neurological Neuro grossly intact: Yes Cognition: Normal Orientation: AAOx4 Speech: Normal Sensory: Normal - Psychological Associated symptoms: Normal affect, Normal mood - Skin Skin Temperature: Warm Skin Moisture: Dry Skin Color: Normal Course - Re-evaluation Re-evalutation: 10/24/19 15:59 Patient dependent BiPAP O2 support at this time. - Vital Signs Vital signs: Temp Pulse Resp BP Pulse Ox 100.2 F 95 31 H 108/54 L 92 10/24/19 05:55 10/24/19 13:34 10/24/19 14:50 10/24/19 13:11 10/24/19 14:50 10/24/19 16:00 Vital signs as reported temperature 100.2 pulse ox 92% on BiPAP - Laboratory Result Diagrams: 10/24/19 05:32 10/24/19 05:32 Laboratory results interpreted by me: 10/24/19 10/24/19 10/24/19 05:32 05:32 05:32 WBC 2.8 L RBC 3.27 L Hgb 11.5 L Hct 33.8 L MCV 103 H MCH 35.1 H RDW 17.8 H Seg Neuts % (Manual) 41 L Abs Neuts (Manual) 1.1 L D-Dimer Carbonic Acid ABG pH ABG pCO2 ABG pO2 ABG O2 Saturation Sodium 132.5 L Chloride 94 L Glucose 183 H Total Bilirubin 1.7 H Direct Bilirubin 0.6 H AST 67 H Lactate Dehydrogenase Creatine Kinase NT-Pro-B Natriuret Pep 1590 H Urine Protein Urine Blood Urine Ascorbic Acid 10/24/19 10/24/19 10/24/19 05:32 05:32 05:33 WBC RBC Hgb Hct MCV MCH RDW Seg Neuts % (Manual) Abs Neuts (Manual) D-Dimer 3.37 H Carbonic Acid 0.80 L ABG pH 7.52 H ABG pCO2 26.5 L ABG pO2 54.7 L ABG O2 Saturation 92.0 L Sodium Chloride Glucose Total Bilirubin Direct Bilirubin AST Lactate Dehydrogenase Creatine Kinase 1484 H NT-Pro-B Natriuret Pep Urine Protein Urine Blood Urine Ascorbic Acid 10/24/19 10/24/19 09:11 09:51 WBC RBC Hgb Hct MCV MCH RDW Seg Neuts % (Manual) Abs Neuts (Manual) D-Dimer Carbonic Acid ABG pH ABG pCO2 ABG pO2 ABG O2 Saturation Sodium Chloride Glucose Total Bilirubin Direct Bilirubin AST Lactate Dehydrogenase 362 H Creatine Kinase NT-Pro-B Natriuret Pep Urine Protein 30 H Urine Blood LARGE H Urine Ascorbic Acid 20 H Low white blood cell count of 2.8 and elevated d-dimer, elevated CK of 1484 and elevated lactate dehydrogenase 362, and a BNP elevation. Patient also noted to have a large urine blood. 10/24/19 16:01 Patient has a - Diagnostic Test Radiology reviewed: Image reviewed, Reports reviewed Radiology results interpreted by me: 10/24/19 11:27 Chest X-Ray 10/24/19 00:00 IMPRESSION: Unchanged bilateral pneumonia. Chest/Abdomen CTA 10/24/19 07:48 IMPRESSION: 1. Extensive multifocal bilateral areas of consolidation and ground-glass attenuation compatible with infectious/ inflammatory etiology, including Covid-19 pneumonia. 2. No pulmonary embolus. 3. Splenomegaly. Bilateral pneumonia on plain film chest x-ray. Chest CTA shows no areas of pulmonary embolus and noted extensive multifocal bilateral areas of consolidation and groundglass attenuation. Critical Care Note - Critical Care Note Total time excluding time spent on procedures (mins): 40 - Managing patient with hypoxia requiring BiPAP support, ordering appropriate studies for COVID-19 diagnoses confirmation with collateral laboratories. IV fluid management and antibiotics given for bilateral pneumonia. Discussion with admit team regarding critical nature of patient with O2 support requirement. Discharge - Discharge Clinical Impression: Bilateral pneumonia, COVID-19 in immunocompromised patient, Elevated brain natriuretic peptide (BNP) level, Acute respiratory failure with hypoxia Hairy cell leukemia Qualifiers: Leukemia Active/Remission status: without remission Qualified Code(s): C91.40 - Hairy cell leukemia not having achieved remission Condition: Critical Disposition: ADMITTED INPATIENT Admitting Provider: chasity Waller Unit Admitted: IMCU I personally performed the services described in the documentation, reviewed and edited the documentation which was dictated to the scribe in my presence, and it accurately records my words and actions.
[2019-10-24] MEDS: ASCORBIC ACID 500 MG TABLET PO SCH (18:39)
[2019-10-24] MEDS ORDERED: CYANOCOBALAMIN (VITAMIN B-12) INJ 1000 MCG/1 ML VIAL IM SCH (18:45)
[2019-10-24] MEDS: MELATONIN 5 MG TABLET PO SCH (21:48)
[2019-10-24] MEDS: FAMOTIDINE 20 MG TABLET PO SCH (21:48)
[2019-10-24] MEDS: ALBUTEROL SULFATE HFA (90 MCG/PUFF) 8 GM MDI IH SCH (21:49)
[2019-10-24] MEDS ORDERED: ALBUTEROL SULFATE HFA (90 MCG/PUFF) 8 GM MDI (1 MDI/ER DISP) IH SCH (22:00)
[2019-10-24] MEDS ORDERED: LORAZEPAM INJ 2 MG/1 ML VIAL IV PRN (23:39)
[2019-10-25] MEDS: ALBUTEROL SULFATE HFA (90 MCG/PUFF) 8 GM MDI IH SCH ×4 (02:05→21:43)
[2019-10-25] MEDS: IPRATROPIUM/ALBUTEROL 0.5-2.5 MG/3 ML AMPUL NEB SCH ×4 (02:21→19:50)
[2019-10-25] MEDS ORDERED: ACETAMINOPHEN 325 MG TABLET PO PRN ×2 (03:32→04:00)
[2019-10-25 05:40] LABS: HEMATOCRIT 28.3 % (36.0-47.0); HEMOGLOBIN 9.7 g/dL (12.0-15.5); MEAN CORPUSCULAR HEMOGLOBIN 35.4 pg (27.0-33.4); MEAN CORPUSCULAR HGB CONC 34.2 g/dL (32.0-36.0); MEAN CORPUSCULAR VOLUME 104 fl (80-97); PLATELET COUNT 136 10^3/uL (150-450); RED BLOOD COUNT 2.74 10^6/uL (3.72-5.28); RED CELL DISTRIBUTION WIDTH 18.1 % (11.5-14.0)
[2019-10-25] MEDS ORDERED: LEVOTHYROXINE SODIUM 0.088 MG TABLET PO SCH (06:00)
[2019-10-25 06:01] LABS: ANION GAP 8 (5-19); BLOOD UREA NITROGEN 19 mg/dL (7-20); CALCIUM 8.3 mg/dL (8.4-10.2); CARBON DIOXIDE 27 mmol/L (22-30); CHLORIDE 102 mmol/L (98-107); CREATINE KINASE 614 U/L (30-135); GLUCOSE 134 mg/dL (75-110); POTASSIUM 4.1 mmol/L (3.6-5.0)
[2019-10-25 06:03] LABS: ARTERIAL BLOOD BASE EXCESS 3.2 mmol/L; ARTERIAL BLOOD FIO2 100%; ARTERIAL BLOOD H2CO3 1.13 mmol/L (1.05-1.35); ARTERIAL BLOOD O2 SATURATION 91.1 % (94-98); ARTERIAL BLOOD PCO2 37.6 mmHg (35-45); ARTERIAL BLOOD PH 7.47 (7.35-7.45); ARTERIAL BLOOD TOTAL CO2 28.2 mmol/L (21-25)
[2019-10-25 06:23] LABS: ABSOLUTE LYMPHOCYTES# (MANUAL) 0.7 10^3/uL (0.5-4.7); ABSOLUTE MONOCYTES # (MANUAL) 0.1 10^3/uL (0.1-1.4); BAND NEUTROPHILS % (MANUAL) 6 % (3-5); BASOPHILS % (MANUAL) 0 % (0-2); EOSINOPHILS % (MANUAL) 0 % (0-6); LYMPHOCYTES % (MANUAL) 42 % (13-45); MONOCYTES % (MANUAL) 4 % (3-13); NUCLEATED RED BLOOD CELLS 2 /100 WBC (0); SEGMENTED NEUTROPHILS % (MAN) 48 % (42-78); TOTAL CELLS COUNTED 50
[2019-10-25 06:27] LABS: ANISOCYTOSIS 1+; HELMET CELLS SLIGHT; OVALOCYTES 1+; PLATELET COMMENT ADEQUATE; POIKILOCYTOSIS 1+; TOXIC GRANULATION 1+
[2019-10-25 06:28] LABS: WHITE BLOOD COUNT 1.7 10^3/uL (4.0-10.5)
--- NOTE | 2019-10-25 08:04 | PDOC PROGRESS REPORT ---
Subjective Progress Note for:: 10/25/19 Subjective:: Patient was consulted today for this telemedicine visit due to the COVID-19 restrictions. Patient states understanding and consents to this telemedicine visit. Patient confirmed identity with two patient identifiers. Pt was very anxious on receiving plasma yesterday but ultimately was able to get thru it w/out complication. No other acute events overnight Reason For Visit: POSITIVE COVID/PNEUMONIA Physical Exam Vital Signs: Temp Pulse Resp BP Pulse Ox 98.5 F 92 33 H 129/66 H 95 10/25/19 07:37 10/25/19 07:00 10/25/19 04:15 10/25/19 03:57 10/25/19 04:15 Intake & Output 10/24/19 10/25/19 10/26/19 06:59 06:59 06:59 Intake Total 331 Output Total 1250 Balance -919 Weight 95.254 kg 95.2 kg General appearance: PRESENT: no acute distress, well-developed, well-nourished Head exam: PRESENT: atraumatic, normocephalic Eye exam: PRESENT: conjunctiva pink, EOMI, PERRLA. ABSENT: scleral icterus Ear exam: PRESENT: normal external ear exam Mouth exam: PRESENT: moist, tongue midline Neck exam: ABSENT: carotid bruit, JVD, lymphadenopathy, thyromegaly Respiratory exam: PRESENT: clear to auscultation marco antonio. ABSENT: rales, rhonchi, wheezes Cardiovascular exam: PRESENT: RRR. ABSENT: diastolic murmur, rubs, systolic murmur Pulses: PRESENT: normal dorsalis pedis pul Vascular exam: PRESENT: normal capillary refill GI/Abdominal exam: PRESENT: normal bowel sounds, soft. ABSENT: distended, guarding, mass, organolmegaly, rebound, tenderness Rectal exam: PRESENT: deferred Extremities exam: PRESENT: full ROM. ABSENT: calf tenderness, clubbing, pedal edema Neurological exam: PRESENT: alert, awake, oriented to person, oriented to place, oriented to time, oriented to situation, CN II-XII grossly intact. ABSENT: motor sensory deficit Psychiatric exam: PRESENT: appropriate affect, normal mood. ABSENT: homicidal ideation, suicidal ideation Skin exam: PRESENT: dry, intact, warm. ABSENT: cyanosis, rash Results Laboratory Results: 10/25/19 05:03 10/25/19 05:03 10/24/19 10/24/19 10/24/19 05:32 09:11 13:40 WBC RBC Hgb Hct MCV MCH MCHC RDW Plt Count Seg Neutrophils % Carbonic Acid 1.07 HCO3/H2CO3 Ratio 23:1 ABG pH 7.47 H ABG pCO2 35.6 ABG pO2 53.2 L ABG HCO3 25.0 H ABG O2 Saturation 89.7 L ABG Base Excess 1.4 FiO2 80% Sodium Potassium Chloride Carbon Dioxide Anion Gap BUN Creatinine Est GFR ( Amer) Glucose Calcium Ferritin 248.00 Urine Color YELLOW Urine Appearance SLIGHTLY-CLOUDY Urine pH 5.0 Ur Specific [place] 1.014 Urine Protein 30 H Urine Glucose (UA) NEGATIVE Urine Ketones NEGATIVE Urine Blood LARGE H Urine Nitrite NEGATIVE Ur Leukocyte Esterase NEGATIVE Urine WBC (Auto) 1 Urine RBC (Auto) 8 Blood Type Antibody Screen 10/24/19 10/25/19 10/25/19 15:34 05:03 05:03 WBC 1.7 L D RBC 2.74 L Hgb 9.7 L Hct 28.3 L MCV 104 H MCH 35.4 H MCHC 34.2 RDW 18.1 H Plt Count 136 L Seg Neutrophils % Not Reportable Carbonic Acid HCO3/H2CO3 Ratio ABG pH ABG pCO2 ABG pO2 ABG HCO3 ABG O2 Saturation ABG Base Excess FiO2 Sodium 136.5 L Potassium 4.1 Chloride 102 Carbon Dioxide 27 Anion Gap 8 BUN 19 Creatinine 0.85 Est GFR ( Amer) > 60 Glucose 134 H Calcium 8.3 L Ferritin Urine Color Urine Appearance Urine pH Ur Specific [place] Urine Protein Urine Glucose (UA) Urine Ketones Urine Blood Urine Nitrite Ur Leukocyte Esterase Urine WBC (Auto) Urine RBC (Auto) Blood Type A POSITIVE Antibody Screen NEGATIVE 10/25/19 05:41 WBC RBC Hgb Hct MCV MCH MCHC RDW Plt Count Seg Neutrophils % Carbonic Acid 1.13 HCO3/H2CO3 Ratio 23:1 ABG pH 7.47 H ABG pCO2 37.6 ABG pO2 56.0 L ABG HCO3 27.0 H ABG O2 Saturation 91.1 L ABG Base Excess 3.2 FiO2 100% Sodium Potassium Chloride Carbon Dioxide Anion Gap BUN Creatinine Est GFR ( Amer) Glucose Calcium Ferritin Urine Color Urine Appearance Urine pH Ur Specific [place] Urine Protein Urine Glucose (UA) Urine Ketones Urine Blood Urine Nitrite Ur Leukocyte Esterase Urine WBC (Auto) Urine RBC (Auto) Blood Type Antibody Screen 10/24/19 10/24/19 10/24/19 05:32 05:32 05:32 Creatine Kinase 1484 H Troponin I 0.073 NT-Pro-B Natriuret Pep 1590 H 10/24/19 10/24/19 10/25/19 13:27 18:28 05:03 Creatine Kinase 614 H Troponin I 0.068 0.048 NT-Pro-B Natriuret Pep Impressions: Chest X-Ray 10/24/19 00:00 IMPRESSION: Unchanged bilateral pneumonia. Chest/Abdomen CTA 10/24/19 07:48 IMPRESSION: 1. Extensive multifocal bilateral areas of consolidation and ground-glass attenuation compatible with infectious/ inflammatory etiology, including Covid-19 pneumonia. 2. No pulmonary embolus. 3. Splenomegaly. Assessment & Plan - Diagnosis (1) Hairy cell leukemia Qualifiers: Leukemia Active/Remission status: without remission Qualified Code(s): C91.40 - Hairy cell leukemia not having achieved remission Is this a current diagnosis for this admission?: Yes Plan: ANC 900, still hold on initiating neupogen for now. Will watch. Transfuse blood if hb <8 and plt if <10. would try and give irradiated units if possible. (2) Pneumonia due to COVID-19 virus Is this a current diagnosis for this admission?: Yes Plan: Cont per hospitalist protocol. - Time Time Spent with patient: 35 or more minutes - Inpatient Certification Based on my medical assessment, after consideration of the patient's santana rbidities, presenting symptoms, or acuity I expect that the services needed warrant INPATIENT care.: Yes I certify that my determination is in accordance with my understanding of Medicare's requirements for reasonable and necessary INPATIENT services [42 CFR 412.3e].: Yes Medical Necessity: Need For IV Fluids, Need for IV Antibiotics
--- NOTE | 2019-10-25 08:54 | Progress Note ---
Provider Note Provider Note: Received call from nursing with concern regarding hemoptysis. Per nursing, the patient had had a coughing episode resulting in meka hemoptysis described as bright red blood not mixed with sputum. This occurred shortly after coming off of CPAP to attempt to eat her dinner; she was placed back on CPAP with rapid re covery and now is maintaining oxygen saturations in the low to mid 90s with a continued respiratory rate in the mid 30s. Patient was briefly seen; she is resting in bed, comfortably, on CPAP. She con tinues to be able to speak in full sentences. The patient indicated the tissues into it she had coughed; 1 partially dampened paper towel and one partially dampened tissue were noted to have light pink- tinged fluid. No bright red blood identified. She states that she feels fine at present, and is appreciative of the nursing and provider attention, and is not concerned by her current episode of hemoptysis. We did discuss the importance of reporting further episodes of hemoptysis. She is advised that further episodes of light pink-tinged sputum is acceptable, however, if she were to develop bright red blood streaking or meka blood to notify nursing right away. Patient does describe 1 episode of hemoptysis in June during a bronchitis illness. She states at that time, she woke from sleep with a choking sensation and expectorated "a small handful" of bright red blood. She denies any other history of hemoptysis. She does tell me that she had imaging studies done by Dr. Scherer earlier this year with identified lung nodule, however, this did not illuminate on PET scan. - CT chest (06/10/2019) identified scattered irregular nodular opacities within the lingula and right lower lobe; largest measuring 17 x 11 mm within the right lower lobe. She was further noted to have marketed splenomegaly and asymmetrical breast tissue warranting further evaluation and malignancy work-up. - PET scan (07/05/2019) showed borderline enlarged mesenteric mediastinal adenopathy without abnormal FDG uptake, splenomegaly, and asymmetrical density to the upper outer quadrant of the left breast with minimal FDG uptake. Plan: We will hold heparin drip overnight. Will discuss hemoptysis and heparinization with oncology further prior to resumption. Repeat d-dimer with a.m. lab work. CPAP adjusted to IPAP 10/FiO2 100%. Repeat ABG with a.m. lab work. Discussed with ICU Head Cd Reactor Operator, DALLAS Echeverria, so that she would be aware of patient underlying conditions should she acutely worsen overnight.
[2019-10-25] MEDS ORDERED: DEXAMETHASONE SOD PHOSPHATE INJ 4 MG/1 ML VIAL IV SCH (10:00)
[2019-10-25] MEDS: ASCORBIC ACID 500 MG TABLET PO SCH ×2 (10:17→20:29)
[2019-10-25] MEDS: CHOLECALCIFEROL (D3) 400 UNIT TABLET PO SCH (10:17)
[2019-10-25] MEDS: ZINC SULFATE 220 MG CAPSULE PO SCH (10:17)
[2019-10-25] MEDS: CEFTRIAXONE 1 GM/D5W RTU 1 GM/50 ML RTUPB IV SCH (10:17)
[2019-10-25] MEDS: FLUOXETINE HCL 20 MG CAPSULE PO SCH (10:17)
[2019-10-25] MEDS: FAMOTIDINE 20 MG TABLET PO SCH ×3 (10:17→22:53)
[2019-10-25] MEDS: DEXAMETHASONE SOD PHOS INJ 10 MG/1 ML VIAL IV SCH (10:18)
[2019-10-25] MEDS: REMDESIVIR (EUA) 100 MG in NORMAL SALINE 250 ML IV SCH (10:18)
[2019-10-25] MEDS: AZITHROMYCIN 500 MG in DEXTROSE 5%-WATER 250 ML IV SCH (10:19)
[2019-10-25] MEDS ORDERED: NORMAL SALINE 1000 ML 1,000 ML IV PRN ×2 (10:50→13:56)
[2019-10-25] MEDS ORDERED: NORMAL SALINE 1000 ML 1,000 ML IV ONE (10:50)
[2019-10-25] MEDS ORDERED: CEFEPIME 2 GM/D5W RTU 2 GM/50 ML RTUPB IV SCH (11:00)
[2019-10-25] MEDS ORDERED: VANCOMYCIN HCL 0 MG in DEXTROSE 5%-WATER 250 ML IV NR (11:00)
--- NOTE | 2019-10-25 11:06 | CRITICAL CARE ADMISSION REPORT ---
HPI Date:: 10/25/19 Time:: 10:30 Reason for ICU Reason:: High risk of intubation. Admission Date/Time & PCP: Admission Date/Time: 10/24/19 12:56 Primary Care Provider: HPI: This patient is a 49 yo woman recently diagnosed with COVID-19 at an urgent care via a rapid test. She was admitted to [facility] with SOB and worsening oxygenation. She has been maintained on the COVID floor with higher oxygen requirements of 100% on bipap. She appears comfortable although somewhat tachypnic. She tends to desaturate to 75-85% with movement. She is not needing intubation at this time but with no reserve and on 100% the next step is intubation. Other comorbidities include recently dignosed hairy cell leukemia for which she has had no treatment. She has had some mild hemoptysis, far under 200cc/day consistent with a lung infection. At this point she is meeting ICU criteria and may prgress towards intubation. History obtained from:: Patient, nursing staff, hospitalist and old records. - Diagnosis/Plan (1) Pneumonia due to COVID-19 virus Is this a current diagnosis for this admission?: Yes Plan: This is the primary reason for an ICU placement and the resulting intubation risk. (2) Acute respiratory failure with hypoxia Is this a current diagnosis for this admission?: Yes Plan: She is hypoxic with a pO2 of 56 on 100% and may worsen as it has over the last 24 hours. Watch in ICU for intubation need. (3) Hairy cell leukemia Qualifiers: Leukemia Active/Remission status: without remission Qualified Code(s): C91.40 - Hairy cell leukemia not having achieved remission Is this a current diagnosis for this admission?: Yes Plan: This has not been treated. I agree with Dr. Connolly to not give neupogen for WBC of 1.7 for risk of trigering ARDS. (4) Hypothyroid Qualifiers: Hypothyroidism type: acquired Qualified Code(s): E03.9 - Hypothyroidism, un specified Is this a current diagnosis for this admission?: Yes Plan: Continue synthroid. (5) Obesity (BMI 30-39.9) Is this a current diagnosis for this admission?: Yes Plan: Chronic and a COVID risk factor. Plan Summary: Monitor in the ICU for intubation risk. Past Medical History Cardiac Medical History: Reports: None Pulmonary Medical History: Reports: Bronchitis EENT Medical History: Reports: None Neurological Medical History: Reports: None Endocrine Medical History: Reports: Hypothyroidism Renal/ Medical History: Reports: None Malignancy Medical History: Reports: Leukemia - Hairy cell GI Medical History: Reports: None Musculoskeltal Medical History: Reports: Arthritis - LOWER BACK Skin Medical History: Reports: None Psychiatric Medical History: Reports: Depression Hematology: Reports: None Infectious Medical History: Reports: None Past Surgical History Past Surgical History: Reports: Other - BMBX Social/Family History - Social History Lives with: Family Smoking Status: Never Smoker Frequency of Alcohol Use: Social Hx Recreational Drug Use: No Hx Prescription Drug Abuse: No - Medication/Allergies Home Medications: Fluoxetine HCl [Prozac 20 mg Capsule] 20 mg PO DAILY 06/27/19 Albuterol Sulfate [Albuterol Sulfate Hfa] 2 puff IH Q4 10/24/19 Cyanocobalamin (Vitamin B-12) [Vitamin B-12 Inj 1000 Mcg/1 ml Vial] 1,000 mcg IM [id number] 10/24/19 Levothyroxine Sodium 88 mcg PO DAILY 10/24/19 Allergies/Adverse Reactions: rofecoxib [From Vioxx] Allergy (Verified 06/27/19 09:31) Review of Systems ROS unobtainable: Due to endotracheal tube, Due to mental status, Other Constitutional: PRESENT: fatigue Cardiovascular: ABSENT: chest pain, dyspnea on exertion, edema, orthropnea, palpitations Respiratory: PRESENT: cough, dyspnea, hemoptysis Gastrointestinal: ABSENT: abdominal pain, constipation, diarrhea, hematemesis, hematochezia, nausea, vomiting Integumentary: ABSENT: rash, wounds Neurological: ABSENT: abnormal gait, abnormal speech, confusion, dizziness, focal weakness, syncope Endocrine: ABSENT: cold intolerance, heat intolerance, polydipsia, polyuria Hematologic/Lymphatic: ABSENT: easy bleeding, easy bruising Physical Exam Vital Signs: Temp Pulse Resp BP Pulse Ox 98.5 F 101 H 26 H 129/66 H 96 10/25/19 07:37 10/25/19 10:07 10/25/19 10:07 10/25/19 03:57 10/25/19 10:07 Intake & Output 10/24/19 10/25/19 10/26/19 06:59 06:59 06:59 Intake Total 581 250 Output Total 1250 Balance -669 250 Weight 95.254 kg 95.2 kg Weight/Height Weight 95.2 kg Height 5 ft 5 in General appearance: PRESENT: no acute distress, obese Head exam: PRESENT: atraumatic, normocephalic Eye exam: PRESENT: conjunctiva pink, EOMI, PERRLA. ABSENT: scleral icterus Ear exam: PRESENT: normal external ear exam Mouth exam: PRESENT: moist, tongue midline Respiratory exam: PRESENT: clear to auscultation marco antonio, tachypnea. ABSENT: rales, rhonchi, wheezes Cardiovascular exam: PRESENT: RRR. ABSENT: diastolic murmur, rubs, systolic murmur GI/Abdominal exam: PRESENT: normal bowel sounds, soft. ABSENT: distended, guarding, mass, organolmegaly, rebound, tenderness Rectal exam: PRESENT: deferred Gentrourinary exam: PRESENT: indwelling catheter Extremities exam: PRESENT: full ROM. ABSENT: calf tenderness, clubbing, pedal edema Musculoskeletal exam: PRESENT: normal inspection Neurological exam: PRESENT: alert, awake, oriented to person, oriented to place, oriented to time, oriented to situation, CN II-XII grossly intact. ABSENT: motor sensory deficit Psychiatric exam: PRESENT: appropriate affect, normal mood. ABSENT: homicidal ideation, suicidal ideation Skin exam: PRESENT: dry, intact, warm. ABSENT: cyanosis, rash Tubes/Lines: PRESENT: Other - Bipap. Laboratory/Radiographs Laboratory Results: 10/25/19 05:03 10/25/19 05:03 10/24/19 10/24/19 10/25/19 13:40 15:34 05:03 WBC 1.7 L D RBC 2.74 L Hgb 9.7 L Hct 28.3 L MCV 104 H MCH 35.4 H MCHC 34.2 RDW 18.1 H Plt Count 136 L Seg Neutrophils % Not Reportable Carbonic Acid 1.07 HCO3/H2CO3 Ratio 23:1 ABG pH 7.47 H ABG pCO2 35.6 ABG pO2 53.2 L ABG HCO3 25.0 H ABG O2 Saturation 89.7 L ABG Base Excess 1.4 FiO2 80% Sodium Potassium Chloride Carbon Dioxide Anion Gap BUN Creatinine Est GFR ( Amer) Glucose Lactic Acid Calcium Blood Type A POSITIVE Antibody Screen NEGATIVE 10/25/19 10/25/19 10/25/19 05:03 05:41 10:08 WBC RBC Hgb Hct MCV MCH MCHC RDW Plt Count Seg Neutrophils % Carbonic Acid 1.13 HCO3/H2CO3 Ratio 23:1 ABG pH 7.47 H ABG pCO2 37.6 ABG pO2 56.0 L ABG HCO3 27.0 H ABG O2 Saturation 91.1 L ABG Base Excess 3.2 FiO2 100% Sodium 136.5 L Potassium 4.1 Chloride 102 Carbon Dioxide 27 Anion Gap 8 BUN 19 Creatinine 0.85 Est GFR ( Amer) > 60 Glucose 134 H Lactic Acid 1.4 Calcium 8.3 L Blood Type Antibody Screen 10/24/19 10/24/19 10/24/19 05:32 05:32 05:32 Creatine Kinase 1484 H Troponin I 0.073 NT-Pro-B Natriuret Pep 1590 H 10/24/19 10/24/19 10/25/19 13:27 18:28 05:03 Creatine Kinase 614 H Troponin I 0.068 0.048 NT-Pro-B Natriuret Pep Impressions: Chest X-Ray 10/24/19 00:00 IMPRESSION: Unchanged bilateral pneumonia. Chest/Abdomen CTA 10/24/19 07:48 IMPRESSION: 1. Extensive multifocal bilateral areas of consolidation and ground-glass attenuation compatible with infectious/ inflammatory etiology, including Covid-19 pneumonia. 2. No pulmonary embolus. 3. Splenomegaly. EKG: ST All labs, radiographs, diagnostic studies and EKGs were personally reviewed: Yes In addition, reports of radiographic and diagnostic studies were read: Yes Critical Time Critical Time (minutes): 40 -: The care of a critically ill patient is dynamic. This note represents a static moment in the admission process. Orders and treatments may be given simultaneously and urgently, and time is not telemarketing representative of the treatment process. This patient requires Critical Care secondary to life threatening organ or limb dysfunction. Without Critical Care services, the patient is at risk for increased mortality and morbidity.
--- NOTE | 2019-10-25 11:35 | PDOC PROGRESS REPORT ---
Subjective Progress Note for:: 10/25/19 Subjective:: Discussed patient with nursing. Nursing reports frequent desaturation to 75-85%, primarily with movement. Patient is resting in bed with BiPAP in place. She complains of difficulty breathing, dry mouth, hemoptysis and sore throat. Patient reports she is feeling anxious and requests medication. Otherwise denies headache, myalgias, chest pain, palpitations, abdominal pain, nausea vomiting diarrhea. Reason For Visit: POSITIVE COVID/PNEUMONIA Physical Exam Vital Signs: Temp Pulse Resp BP Pulse Ox 98.5 F 101 H 26 H 129/66 H 96 10/25/19 07:37 10/25/19 10:07 10/25/19 10:07 10/25/19 03:57 10/25/19 10:07 Intake & Output 10/24/19 10/25/19 10/26/19 06:59 06:59 06:59 Intake Total 581 250 Output Total 1250 Balance -669 250 Weight 95.254 kg 95.2 kg General appearance: PRESENT: mild distress, obese Head exam: PRESENT: atraumatic, normocephalic Eye exam: PRESENT: EOMI, PERRLA. ABSENT: scleral icterus Ear exam: PRESENT: normal external ear exam. ABSENT: bleeding, drainage Mouth exam: PRESENT: dry mucosa, tongue midline Respiratory exam: PRESENT: clear to auscultation marco antonio, tachypnea, other - Bipap. ABSENT: rales, rhonchi, wheezes Cardiovascular exam: PRESENT: RRR, +S1, +S2. ABSENT: diastolic murmur, systolic murmur GI/Abdominal exam: PRESENT: normal bowel sounds. ABSENT: distended, firm, guarding, rigid Rectal exam: PRESENT: deferred Gentrourinary exam: PRESENT: indwelling catheter Extremities exam: PRESENT: full ROM. ABSENT: calf tenderness, clubbing, pedal edema Musculoskeletal exam: PRESENT: ambulatory, full ROM Neurological exam: PRESENT: alert, awake, oriented to person, oriented to place, oriented to time, oriented to situation, CN II-XII grossly intact. ABSENT: motor sensory deficit Psychiatric exam: PRESENT: appropriate affect, normal mood Skin exam: PRESENT: dry, intact, normal color, warm. ABSENT: erythema, rash Results Laboratory Results: 10/25/19 05:03 10/25/19 05:03 10/24/19 10/24/1910/24/20 13:40 15:34 05:03 WBC 1.7 L D RBC 2.74 L Hgb 9.7 L Hct 28.3 L MCV 104 H MCH 35.4 H MCHC 34.2 RDW 18.1 H Plt Count 136 L Seg Neutrophils % Not Reportable Carbonic Acid 1.07 HCO3/H2CO3 Ratio 23:1 ABG pH 7.47 H ABG pCO2 35.6 ABG pO2 53.2 L ABG HCO3 25.0 H ABG O2 Saturation 89.7 L ABG Base Excess 1.4 FiO2 80% Sodium Potassium Chloride Carbon Dioxide Anion Gap BUN Creatinine Est GFR ( Amer) Glucose Lactic Acid Calcium Blood Type A POSITIVE Antibody Screen NEGATIVE 10/25/19 10/25/19 10/25/19 05:03 05:41 10:08 WBC RBC Hgb Hct MCV MCH MCHC RDW Plt Count Seg Neutrophils % Carbonic Acid 1.13 HCO3/H2CO3 Ratio 23:1 ABG pH 7.47 H ABG pCO2 37.6 ABG pO2 56.0 L ABG HCO3 27.0 H ABG O2 Saturation 91.1 L ABG Base Excess 3.2 FiO2 100% Sodium 136.5 L Potassium 4.1 Chloride 102 Carbon Dioxide 27 Anion Gap 8 BUN 19 Creatinine 0.85 Est GFR ( Amer) > 60 Glucose 134 H Lactic Acid 1.4 Calcium 8.3 L Blood Type Antibody Screen 10/24/19 10/24/19 10/24/19 05:32 05:32 05:32 Creatine Kinase 1484 H Troponin I 0.073 NT-Pro-B Natriuret Pep 1590 H 10/24/19 10/24/19 10/25/19 13:27 18:28 05:03 Creatine Kinase 614 H Troponin I 0.068 0.048 NT-Pro-B Natriuret Pep Impressions: Chest X-Ray 10/24/19 00:00 IMPRESSION: Unchanged bilateral pneumonia. Chest/Abdomen CTA 10/24/19 07:48 IMPRESSION: 1. Extensive multifocal bilateral areas of consolidation and ground-glass attenuation compatible with infectious/ inflammatory etiology, including Covid-19 pneumonia. 2. No pulmonary embolus. 3. Splenomegaly. Assessment and Plan - Diagnosis (1) Acute respiratory failure with hypoxia Is this a current diagnosis for this admission?: Yes (2) Neutropenia with fever Is this a current diagnosis for this admission?: Yes (3) Pneumonia due to COVID-19 virus Is this a current diagnosis for this admission?: Yes (4) Hemoptysis Is this a current diagnosis for this admission?: Yes (5) Hairy cell leukemia Qualifiers: Leukemia Active/Remission status: without remission Qualified Code(s): C91.40 - Hairy cell leukemia not having achieved remission Is this a current diagnosis for this admission?: Yes (6) Elevated brain natriuretic peptide (BNP) level Is this a current diagnosis for this admission?: Yes (7) Elevated troponin I level Is this a current diagnosis for this admission?: Yes (8) Elevated CK Is this a current diagnosis for this admission?: Yes (9) Hypothyroid Qualifiers: Hypothyroidism type: acquired Qualified Code(s): E03.9 - Hypothyroidism, unspecified Is this a current diagnosis for this admission?: Yes (10) Obesity (BMI 30-39.9) Is this a current diagnosis for this admission?: Yes - Plan Summary Summary: Ms. 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 She presented to the emergency department on 10/23/2019 complaining of 3-day history of progressively worsening shortness of breath, hemoptysis and generalized weakness. In the ED she was found to have acute respiratory failure with hypoxia. CXR and CTA of her chest were notable for bilateral pneumonia, suspicious for infectious inflammatory etiology including COVID-19 pneumonia. She was referred to hospitalist service where she was admitted to the [facility] with isolation orders. Patient's presentation and hypoxia progressively worsened over coarse of admission, ICU was consulted and patient was subsequently transferred to ICU care. Acute respiratory failure with hypoxia Patient found to be sating at 75-85% with 100% bipap while on the COVID floor. She is hypoxic with paO2 of 56 on 100%. Her status has progressively worsened since admission and I feel she needs ICU attention as she is at risk for intubation need. Dr. Meneses, block layer, was consulted on patient. He does not feel she needs immediate intubation, but does feel she is at risk of future intubation and has agreed to admit her to ICU services for close monitoring. Patient was on BiPap 100% with O2 sat low 90s upon transfer of care to ICU. Neutropenia with Fever Overnight patient developed a fever of 102.7. Over the course of her admission her ANCs have continued to trend downward (1.1, 0.9). Dr. Scherer was consulted regarding appropriate antibiotic therapy for neutropenic fever. He recommended dual therapy with Cefepime 2g q8h + Vancomycin. Vancomycin can be discontinued after [address] Resendiz further advises we consider treatment of neutropenia with Neupogen if no improvement in neutropenia over 2-3 days. Pneumonia due to COVID-19 virus Antibiotic regimen as discussed above. Anti-viral therapy of Remdesivir continued. Steroid therapy of Dexamethasone continued. Vitamin supplementation with zinc, vitamin C, vitamin D3 and melatonin continued. Convalescent serum therapy continued. As she has a history of bronchitis will initiate duoneb treatments q6 hours. Hemoptysis Patient has had some mild hemoptysis (<200cc/day), this is consistent with lung infection. With that said, all Heparin therapy has been discontinued. Lovenox initiated at prophylactic dose. Hairy cell leukemia Patient is followed by Dr. Scherer, oncology, regarding diagnosis of hairy cell leukemia. Dr. Scherer was consulted and informs me that patient was initially diagnosed 4- 5 months ago. Therapy has not yet been initiated due to coronavirus pandemic and risk of prolonged immunosuppression. Dr. Scherer was updated on patient's transfer of care to ICU. He continues to be supportive of current COVID-19 treatment regimen. Elevated brain natriuretic peptide (BNP) level Patient denies known history of heart failure. Outside of current symptoms patient denies history of shortness of breath, orthopnea, lower extremity edema, or weight gain. No signs of fluid overload noted on physical exam. Suspect elevated BNP secondary to acute respiratory distress though etiology is unknown at this time. Consider other etiologies including infectious vs cardiac. Will repeat study upon improvement of current disease process to evaluate patient's baseline BNP. Elevated troponin I level Likely elevated secondary to respiratory failure. EKG reassuring. Noted downward trend of troponins though remain elevated. Monitor on telemetry. Elevated CK Likely related to dehydration in the setting of pneumonia. Significant improvement CK value on morning labs. Continue with IV hydration. Continue to monitor renal function. Hypothyroid Continue with home treatment regimen. Obesity (BMI 30-39.9) Lifestyle modification and dietary discretion encouraged. Cardiac diet initiated. - Time Time Spent with patient: 25-34 minutes Medications reviewed and adjusted accordingly: Yes Anticipated Discharge Disposition: Home, Self Care Anticipated Discharge Timeframe: Pending disease progression
[2019-10-25] MEDS: CEFEPIME HCL 2 GM in DEXTROSE 5%-WATER 50 ML IV SCH ×2 (11:37→18:06)
[2019-10-25] MEDS ORDERED: VANCOMYCIN HCL 1,250 MG in DEXTROSE 5%-WATER 250 ML IV SCH (12:00)
[2019-10-25 12:33] LABS: PATH REVIEW PATHOLOGIST REVIEWED
[2019-10-25] MEDS ORDERED: HEPARIN SOD (PORCINE) 5,000 UNIT/ML 1 ML VIAL SUBCUT SCH (14:00)
[2019-10-25] MEDS: DEXMEDETOMIDINE IN 0.9 % NACL 400 MCG/100 ML RTUPB IV PRN (20:40)
[2019-10-25] MEDS: MELATONIN 5 MG TABLET PO SCH ×2 (21:43→22:53)
[2019-10-26] MEDS: ALBUTEROL SULFATE HFA (90 MCG/PUFF) 8 GM MDI IH SCH ×2 (01:06→06:18)
[2019-10-26] MEDS ORDERED: CEFEPIME 1 GM/D5W RTU 2 GM/100 ML RTUPB IV ONE (01:10)
[2019-10-26] MEDS: CEFEPIME HCL 2 GM in DEXTROSE 5%-WATER 50 ML IV SCH ×3 (01:15→17:35)
[2019-10-26] MEDS: IPRATROPIUM/ALBUTEROL 0.5-2.5 MG/3 ML AMPUL NEB SCH ×4 (01:37→20:48)
[2019-10-26] MEDS: DEXMEDETOMIDINE IN 0.9 % NACL 400 MCG/100 ML RTUPB IV PRN ×4 (02:00→17:33)
[2019-10-26 04:20] LABS: APPEARANCE,URINE TURBID; BILIRUBIN,URINE NEGATIVE (NEGATIVE); COLOR,URINE AMBER; GLUCOSE, URINE NEGATIVE (NEGATIVE); KETONES,URINE NEGATIVE (NEGATIVE); LEUKOCYTE ESTERASE,URINE NEGATIVE (NEGATIVE); NITRITE,URINE NEGATIVE (NEGATIVE); PROTEIN,URINE 100 mg/dL (NEGATIVE); URINE SPECIFIC GRAVITY 1.031
[2019-10-26 04:39] LABS: HEMATOCRIT 24.1 % (36.0-47.0); HEMOGLOBIN 8.2 g/dL (12.0-15.5); MEAN CORPUSCULAR HEMOGLOBIN 35.4 pg (27.0-33.4); MEAN CORPUSCULAR HGB CONC 34.2 g/dL (32.0-36.0); MEAN CORPUSCULAR VOLUME 104 fl (80-97); PLATELET COUNT 126 10^3/uL (150-450); RED BLOOD COUNT 2.33 10^6/uL (3.72-5.28); RED CELL DISTRIBUTION WIDTH 17.9 % (11.5-14.0); WHITE BLOOD COUNT 1.8 10^3/uL (4.0-10.5)
[2019-10-26] MEDS ORDERED: LEVOTHYROXINE SODIUM INJ/PF 0.1 MG SDV IV SCH (05:00)
[2019-10-26 05:01] LABS: ANION GAP 9 (5-19); BLOOD UREA NITROGEN 27 mg/dL (7-20); CALCIUM 7.9 mg/dL (8.4-10.2); CARBON DIOXIDE 25 mmol/L (22-30); CHLORIDE 103 mmol/L (98-107); CREATINE KINASE 525 U/L (30-135); GLUCOSE 179 mg/dL (75-110); POTASSIUM 4.4 mmol/L (3.6-5.0)
[2019-10-26] MEDS ORDERED: LEVOTHYROXINE SODIUM INJ/PF 0.1 MG SDV IV ONE ×2 (05:15→06:15)
[2019-10-26 06:20] LABS: ABSOLUTE LYMPHOCYTES# (MANUAL) 0.6 10^3/uL (0.5-4.7); ABSOLUTE MONOCYTES # (MANUAL) 0.1 10^3/uL (0.1-1.4); BASOPHILS % (MANUAL) 0 % (0-2); EOSINOPHILS % (MANUAL) 0 % (0-6); LYMPHOCYTES % (MANUAL) 36 % (13-45); MONOCYTES % (MANUAL) 8 % (3-13); NUCLEATED RED BLOOD CELLS 2 /100 WBC (0); SEGMENTED NEUTROPHILS % (MAN) 56 % (42-78); TOTAL CELLS COUNTED 50
[2019-10-26 06:21] LABS: ANISOCYTOSIS 2+; OVALOCYTES SLIGHT; PLATELET COMMENT DECREASED; POIKILOCYTOSIS SLIGHT
[2019-10-26 06:43] LABS: ARTERIAL BLOOD H2CO3 1.07 mmol/L (1.05-1.35); ARTERIAL BLOOD HCO3 25.3 mmol/L (20-24); ARTERIAL BLOOD O2 SATURATION 92.8 % (94-98); ARTERIAL BLOOD PCO2 35.5 mmHg (35-45); ARTERIAL BLOOD PH 7.47 (7.35-7.45); ARTERIAL BLOOD PO2 60.6 mmHg (80-100); ARTERIAL BLOOD TOTAL CO2 26.4 mmol/L (21-25)
[2019-10-26 06:44] LABS: ARTERIAL BLOOD FIO2 100%
--- NOTE | 2019-10-26 08:09 | PDOC PROGRESS REPORT ---
Subjective Progress Note for:: 10/26/19 Subjective:: Pt doing better this am, was proned yesterday. O2 better today. I was able to talk to pt for some time this am. I also spoke with at length today also Reason For Visit: COVID-19,HAIRY CELL LEUKEMIA,RISK OF INTUBATION. Physical Exam Vital Signs: Temp Pulse Resp BP Pulse Ox 98.6 F 66 32 H 107/62 92 10/26/19 06:30 10/26/19 06:30 10/26/19 06:30 10/26/19 05:33 10/26/19 06:30 Intake & Output 10/25/19 10/26/19 10/27/19 06:59 06:59 06:59 Intake Total 581 1340 Output Total 1250 770 Balance -669 570 Weight 95.2 kg 100.8 kg General appearance: PRESENT: no acute distress, well-developed, well-nourished Head exam: PRESENT: atraumatic, normocephalic Eye exam: PRESENT: conjunctiva pink, EOMI, PERRLA. ABSENT: scleral icterus Ear exam: PRESENT: normal external ear exam Mouth exam: PRESENT: moist, tongue midline Neck exam: ABSENT: carotid bruit, JVD, lymphadenopathy, thyromegaly Respiratory exam: PRESENT: clear to auscultation marco antonio. ABSENT: rales, rhonchi, wheezes Cardiovascular exam: PRESENT: RRR. ABSENT: diastolic murmur, rubs, systolic murmur Pulses: PRESENT: normal dorsalis pedis pul Vascular exam: PRESENT: normal capillary refill GI/Abdominal exam: PRESENT: normal bowel sounds, soft. ABSENT: distended, guarding, mass, organolmegaly, rebound, tenderness Rectal exam: PRESENT: deferred Extremities exam: PRESENT: full ROM. ABSENT: calf tenderness, clubbing, pedal edema Neurological exam: PRESENT: alert, awake, oriented to person, oriented to place, oriented to time, oriented to situation, CN II-XII grossly intact. ABSENT: motor sensory deficit Psychiatric exam: PRESENT: appropriate affect, normal mood. ABSENT: homicidal ideation, suicidal ideation Skin exam: PRESENT: dry, intact, warm. ABSENT: cyanosis, rash Results Laboratory Results: 10/26/19 03:21 10/26/19 03:21 10/24/19 10/25/19 10/25/19 15:34 10:08 10:08 WBC RBC Hgb Hct MCV MCH MCHC RDW Plt Count Seg Neutrophils % Carbonic Acid HCO3/H2CO3 Ratio ABG pH ABG pCO2 ABG pO2 ABG HCO3 ABG O2 Saturation ABG Base Excess FiO2 Sodium Potassium Chloride Carbon Dioxide Anion Gap BUN Creatinine Est GFR ( Amer) Glucose Lactic Acid 1.4 Calcium Magnesium C-Reactive Protein 498.6 H Urine Color Urine Appearance Urine pH Ur Specific [place] Urine Protein Urine Glucose (UA) Urine Ketones Urine Blood Urine Nitrite Ur Leukocyte Esterase Urine WBC (Auto) Urine RBC (Auto) Blood Type A POSITIVE Antibody Screen NEGATIVE 10/26/19 10/26/19 10/26/19 03:21 03:21 03:55 WBC 1.8 L RBC 2.33 L Hgb 8.2 L Hct 24.1 L MCV 104 H MCH 35.4 H MCHC 34.2 RDW 17.9 H Plt Count 126 L Seg Neutrophils % Not Reportable Carbonic Acid HCO3/H2CO3 Ratio ABG pH ABG pCO2 ABG pO2 ABG HCO3 ABG O2 Saturation ABG Base Excess FiO2 Sodium 137.3 Potassium 4.4 Chloride 103 Carbon Dioxide 25 Anion Gap 9 BUN 27 H Creatinine 0.75 Est GFR ( Amer) > 60 Glucose 179 H Lactic Acid Calcium 7.9 L Magnesium 2.8 H C-Reactive Protein Urine Color JEAN-PAUL Urine Appearance TURBID Urine pH 5.0 Ur Specific [place] 1.031 Urine Protein 100 H Urine Glucose (UA) NEGATIVE Urine Ketones NEGATIVE Urine Blood SMALL H Urine Nitrite NEGATIVE Ur Leukocyte Esterase NEGATIVE Urine WBC (Auto) 14 Urine RBC (Auto) 22 Blood Type Antibody Screen 10/26/19 06:35 WBC RBC Hgb Hct MCV MCH MCHC RDW Plt Count Seg Neutrophils % Carbonic Acid 1.07 HCO3/H2CO3 Ratio 23:1 ABG pH 7.47 H ABG pCO2 35.5 ABG pO2 60.6 L ABG HCO3 25.3 H ABG O2 Saturation 92.8 L ABG Base Excess 2.0 FiO2 100% Sodium Potassium Chloride Carbon Dioxide Anion Gap BUN Creatinine Est GFR ( Amer) Glucose Lactic Acid Calcium Magnesium C-Reactive Protein Urine Color Urine Appearance Urine pH Ur Specific [place] Urine Protein Urine Glucose (UA) Urine Ketones Urine Blood Urine Nitrite Ur Leukocyte Esterase Urine WBC (Auto) Urine RBC (Auto) Blood Type Antibody Screen 0910/24/19 10/24/19 05:32 05:32 05:32 Creatine Kinase 1484 H Troponin I 0.073 NT-Pro-B Natriuret Pep 1590 H 10/24/19 10/24/19 10/25/19 13:27 18:28 05:03 Creatine Kinase 614 H Troponin I 0.068 0.048 NT-Pro-B Natriuret Pep 10/26/19 03:21 Creatine Kinase 525 H Troponin I NT-Pro-B Natriuret Pep Impressions: Chest/Abdomen CTA 10/24/19 07:48 IMPRESSION: 1. Extensive multifocal bilateral areas of consolidation and ground-glass attenuation compatible with infectious/ inflammatory etiology, including Covid-19 pneumonia. 2. No pulmonary embolus. 3. Splenomegaly. Assessment & Plan - Diagnosis (1) Hairy cell leukemia Qualifiers: Leukemia Active/Remission status: without remission Qualified Code(s): C91.40 - Hairy cell leukemia not having achieved remission Is this a current diagnosis for this admission?: Yes Plan: Counts generally stable. Would transfuse PRBC if hb <7 or hemodynamically unstable, transfuse plt if <10, would use irradiated and leukoreduced products if possible. (2) Pneumonia due to COVID-19 virus Is this a current diagnosis for this admission?: Yes Plan: COnt per ICU protocol, pt seems clinically better - Time Time Spent with patient: 35 or more minutes
--- NOTE | 2019-10-26 08:38 | RADIOLOGY REPORT (SQ) ---
EXAM DESCRIPTION: CHEST SINGLE VIEW IMAGES COMPLETED DATE/TIME: 10/26/2019 7:04 am REASON FOR STUDY: BIPAP COMPARISON: 10/24/2019 NUMBER OF VIEWS: One view. TECHNIQUE: Single frontal radiographic image of the chest acquired. LIMITATIONS: None. FINDINGS: LUNGS AND PLEURA: Increasing bilateral alveolar airspace disease. MEDIASTINUM AND HILAR STRUCTURES: Stable heart size and mediastinal structures. HEART AND VASCULAR STRUCTURES: Stable in appearance. BONES: No acute findings. HARDWARE: None in the chest. OTHER: No other significant finding. IMPRESSION: Increasing bilateral alveolar airspace disease. TECHNICAL DOCUMENTATION: JOB ID: [id number] 2010 [employer]- All Rights Reserved Reading location - IP/workstation name: [email or web address]
[2019-10-26] MEDS: DEXAMETHASONE SOD PHOS INJ 10 MG/1 ML VIAL IV SCH (09:38)
[2019-10-26] MEDS: ENOXAPARIN SODIUM INJ 40 MG/0.4 ML DISP.SYRIN SUBCUT SCH (09:39)
[2019-10-26] MEDS: CHOLECALCIFEROL (D3) 400 UNIT TABLET PO SCH (09:40)
[2019-10-26] MEDS: ASCORBIC ACID 500 MG TABLET PO SCH ×2 (09:40→18:00)
[2019-10-26] MEDS: FLUOXETINE HCL 20 MG CAPSULE PO SCH (09:40)
[2019-10-26] MEDS: ZINC SULFATE 220 MG CAPSULE PO SCH (09:40)
[2019-10-26] MEDS ORDERED: PANTOPRAZOLE SODIUM 40 MG VIAL IV SCH (10:00)
[2019-10-26] MEDS: REMDESIVIR (EUA) 100 MG in NORMAL SALINE 250 ML IV SCH (10:48)
[2019-10-26] MEDS ORDERED: NORMAL SALINE 1000 ML 1,000 ML IV PRN (13:11)
[2019-10-26] MEDS ORDERED: CALCIUM GLUCONATE 1000 MG/10 ML INJ IV ONE ×2 (13:16→22:00)
[2019-10-26] MEDS: CALCIUM GLUCONATE 1 GM/NS 50 ML RTU IV SCH ×2 (16:00→17:34)
[2019-10-26] MEDS ORDERED: ETOMIDATE INJ/PF 20 MG/10 ML SDV IV ONE (21:18)
[2019-10-26] MEDS ORDERED: PROPOFOL INJ 200 MG/20 ML VIAL IV ONE (21:49)
[2019-10-26] MEDS ORDERED: ROCURONIUM BROMIDE INJ 50 MG/5 ML VIAL IV ONE (22:00)
[2019-10-26] MEDS ORDERED: SUCCINYLCHOLINE CHLORIDE INJ 200 MG/10 ML VIAL ONE (22:00)
[2019-10-26] MEDS ORDERED: ATROPINE SULFATE INJ 1 MG/10 ML DISP.SYRIN IV ONE (22:00)
[2019-10-26] MEDS ORDERED: EPINEPHRINE INJ 1 MG/10 ML DISP.SYRIN ONE ×4 (22:00→23:19)
[2019-10-26] MEDS ORDERED: SODIUM BICARBONATE 8.4% INJ 50 MEQ/50 ML DISP.SYRIN ONE ×3 (22:00→22:47)
[2019-10-26] MEDS ORDERED: EPINEPHRINE INJ/PF 1 MG/1 ML AMPULE ONE (22:22)
[2019-10-26] MEDS: MELATONIN 5 MG TABLET PO SCH (22:41)
[2019-10-26 22:42] LABS: ARTERIAL BLOOD BASE EXCESS -25.2 mmol/L; ARTERIAL BLOOD H2CO3 2.86 mmol/L (1.05-1.35); ARTERIAL BLOOD HCO3 10.9 mmol/L (20-24); ARTERIAL BLOOD O2 SATURATION 41.2 % (94-98); ARTERIAL BLOOD PO2 48.3 mmHg (80-100); ARTERIAL BLOOD TOTAL CO2 13.8 mmol/L (21-25)
[2019-10-26 22:44] LABS: ARTERIAL BLOOD FIO2 100%
[2019-10-26 22:46] LABS: ARTERIAL BLOOD PCO2 95.1 mmHg (35-45); ARTERIAL BLOOD PH 6.68 (7.35-7.45)
--- NOTE | 2019-10-26 22:55 | RADIOLOGY REPORT (SQ) ---
EXAM DESCRIPTION: XR CHEST 1 VIEW COMPLETED DATE/TME: 10/26/2019 21:44 CLINICAL HISTORY: 49 years, Female, Intubation COMPARISON: 10/26/2019 chest at 6:19 AM NUMBER OF VIEWS: 1 TECHNIQUE: Portable chest LIMITATIONS: None. FINDINGS: There is overlying artifact. Endotracheal tube with the tip 1.6 cm above the joe. Enteric tube, the tip extends into the left upper quadrant. No pneumothorax. Airspace opacities bilaterally. IMPRESSION: Interval intubation and placement of an enteric tube. Other findings are grossly stable copyright 2011 [employer]- All Rights Reserved
[2019-10-26 23:15] LABS: ALBUMIN 2.2 g/dL (3.5-5.0); ALKALINE PHOSPHATASE 61 U/L (38-126); ASPARTATE AMINO TRANSFERASE 82 U/L (14-36); BILIRUBIN,DIRECT 0.5 mg/dL (0.0-0.4); BLOOD UREA NITROGEN 38 mg/dL (7-20); CALCIUM 11.6 mg/dL (8.4-10.2); GLUCOSE 299 mg/dL (75-110); TOTAL PROTEIN 4.6 g/dL (6.3-8.2)
[2019-10-26 23:20] LABS: CARBON DIOXIDE 19 mmol/L (22-30); CHLORIDE 103 mmol/L (98-107); POTASSIUM 5.9 mmol/L (3.6-5.0)
[2019-10-26 23:25] LABS: ANION GAP 25 (5-19)
[2019-10-26 23:28] LABS: VANCOMYCIN,TROUGH < 5.0 ug/mL (5.0-20.0)
[2019-10-26 23:35] VITALS: BP 104/70
[2019-10-27] MEDS: ALBUTEROL SULFATE HFA (90 MCG/PUFF) 8 GM MDI IH SCH ×4 (00:15→04:53)
[2019-10-27] MEDS: ENOXAPARIN SODIUM INJ 40 MG/0.4 ML DISP.SYRIN SUBCUT SCH (00:16)
--- NOTE | 2019-10-27 01:43 | Progress Note ---
Provider Note Provider Note: 10/26/2019 at 2113 called to room 606 by nursing staff. Patient had vomited into BIPAP mask and was experiencing desaturation. Her oxygen levels were dropping into the 70's and at this time patent was removed from bipap and was being bagged with 100% BVM. The patent was beginning to sheri down her rate was in the 60's and at 2142 the patient lost her pulse. A code was called and CPR and ACLS protocol initiated. I intubated the patient with a #8 ETT and had positive color change with the CO2 detector however the patient continued to desaturate and the CO2 no longer had color change. The ETT was removed and the patient was again being bagged with BVM. I atemted to reinsert ETT without success. The [employer] was called to intubate at 2200 and she placed a #8 ETT and the patinet was placed on the ventilator. Her oxygen saturation remianed low and when the EPI pushes wore off the patient became sheri cardic and lost her pulse once again. ACLS initiated and ROSC achieved. Please refer to code sheet for a complete list of medicines given. After multiple episodes of patient loosing her pulse and requiring epi pushes despite being on a continuos epi gtt I called and spoke to her and updated him on the patients events tonight. The arrived to the ICU and was made aware of her low oxygen level despite being on the ventilator with 100 oxygen and was also made aware of her loosing her pulse multiple times and requiring CPR and medication to regain a pulse. On 10/27/2019 the patient once again lost her pulse and CPR was initiated and ACLS protocol started. The patients entered the room and request that we stop all resuscitative efforts; however the patient had achieved ROSC after EPI push. I explained to the that this would be short lived and she would once again loose her pulse. At this time he decided to make the patient a DNR and to no attempt any life saving measures at this time.
--- NOTE | 2019-10-27 01:45 | Progress Note ---
Provider Note Provider Note: At 0100 the patient was in asytole confirmed in two leads. There are no audible heart tones and no palpable pulses. The ventilator was disconnected and the patinet has no spontaneous resp effort. The is at bedside and is aware that the patient has . Time of is 0100.
--- NOTE | 2019-10-27 01:49 | Death Summary ---
Summary Date : 10/27/19 Time of :: 01:00 Autopsy: No Resuscitation Status: Do Not Resuscitate - initially full code after multiple reucitative attempts decided on DNR status Primary Care Provider: karin - Final Diagnosis (1) COVID-19 Is this a current diagnosis for this admission?: Yes (2) Respiratory failure with hypoxia Is this a current diagnosis for this admission?: Yes (3) Aspiration into airway Is this a current diagnosis for this admission?: No
--- NOTE | 2019-10-27 01:52 | Operative Report ---
Bedside Procedure - History of Present Illness Indication for Procedure: respiratory failure acute with hypoxia Provider: CHRISTELLE MONTAÑO - Intubation Orotracheal Airway evaluation: Normal anatomy Medications: Etomidate, Other - Rocuronium Intubation method: Orotracheal Blade type: [place], Other - glidescope Blade size: 4 Equipment used: Glidescope ETT size: 8.0 ETT secured at: Lips - 22 ETT secured at (cm): 22 Intubation Complications: Oral-unsuccessful attempt - brief color change sats continue to decline
[2019-10-27] MEDS: IPRATROPIUM/ALBUTEROL 0.5-2.5 MG/3 ML AMPUL NEB SCH (02:22)
--- NOTE | 2019-10-27 02:30 | PDOC DISCHARGE SUMMARY ---
Impression - Admit/DC Date/PCP Admission Date/Primary Care Provider: 10/24/19 12:56 Discharge Date: 10/27/19 - Discharge Diagnosis (1) COVID-19 Is this a current diagnosis for this admission?: Yes (2) Respiratory failure with hypoxia Is this a current diagnosis for this admission?: Yes (3) Aspiration into airway Is this a current diagnosis for this admission?: No - Assessment Summary: Ms. 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 She presented to the emergency department on 10/23/2019 complaining of 3-day history of progressively worsening shortness of breath, hemoptysis and generalized weakness. In the ED she was found to have acute respiratory failure with hypoxia. CXR and CTA of her chest were notable for bilateral pneumonia, suspicious for infectious inflammatory etiology including COVID-19 pneumonia. She was referred to hospitalist service where she was admitted to the [facility] with isolation orders. Patient's presentation and hypoxia progressively worsened over coarse of admission, ICU was consulted and patient was subsequently transferred to ICU care. Acute respiratory failure with hypoxia Patient found to be sating at 75-85% with 100% bipap while on the COVID floor. She is hypoxic with paO2 of 56 on 100%. Her status has progressively worsened since admission and I feel she needs ICU attention as she is at risk for intubation need. Dr. Meneses, paper mill supervisor, was consulted on patient. He does not feel she needs immediate intubation, but does feel she is at risk of future intubation and has agreed to admit her to ICU services for close monitoring. Patient was on BiPap 100% with O2 sat low 90s upon transfer of care to ICU. Neutropenia with Fever Overnight patient developed a fever of 102.7. Over the course of her admission her ANCs have continued to trend downward (1.1, 0.9). Dr. Scherer was consulted regarding appropriate antibiotic therapy for neutropenic fever. He recommended dual therapy with Cefepime 2g q8h + Vancomycin. Vancomycin can be discontinued after [address] of [address] Resendiz further advises we consider treatment of neutropenia with Neupogen if no improvement in neutropenia over 2-3 days. Pneumonia due to COVID-19 virus Antibiotic regimen as discussed above. Anti-viral therapy of Remdesivir continued. Steroid therapy of Dexamethasone continued. Vitamin supplementation with zinc, vitamin C, vitamin D3 and melatonin continued. Convalescent serum therapy continued. As she has a history of bronchitis will initiate duoneb treatments q6 hours. Hemoptysis Patient has had some mild hemoptysis (<200cc/day), this is consistent with lung infection. With that said, all Heparin therapy has been discontinued. Lovenox initiated at prophylactic dose. Hairy cell leukemia Patient is followed by Dr. Scherer, oncology, regarding diagnosis of hairy cell leukemia. Dr. Scherer was consulted and informs me that patient was initially diagnosed 4- 5 months ago. Therapy has not yet been initiated due to coronavirus pandemic and risk of prolonged immunosuppression. Dr. Scherer was updated on patient's transfer of care to ICU. He continues to be supportive of current COVID-19 treatment regimen. Elevated brain natriuretic peptide (BNP) level Patient denies known history of heart failure. Outside of current symptoms patient denies history of shortness of breath, orthopnea, lower extremity edema, or weight gain. No signs of fluid overload noted on physical exam. Suspect elevated BNP secondary to acute respiratory distress though etiology is unknown at this time. Consider other etiologies including infectious vs cardiac. Will repeat study upon improvement of current disease process to evaluate patient's baseline BNP. Elevated troponin I level Likely elevated secondary to respiratory failure. EKG reassuring. Noted downward trend of troponins though remain elevated. Monitor on telemetry. Elevated CK Likely related to dehydration in the setting of pneumonia. Significant improvement CK value on morning labs. Continue with IV hydration. Continue to monitor renal function. Hypothyroid Continue with home treatment regimen. Obesity (BMI 30-39.9) Lifestyle modification and dietary discretion encouraged. Cardiac diet initiated. - Additional Information Resuscitation Status: Do Not Resuscitate - initially full code after multiple reucitative attempts decided on DNR status Home Medications: Fluoxetine HCl [Prozac 20 mg Capsule] 20 mg PO DAILY 06/27/19 Albuterol Sulfate [Albuterol Sulfate Hfa] 2 puff IH Q4 10/24/19 Cyanocobalamin (Vitamin B-12) [Vitamin B-12 Inj 1000 Mcg/1 ml Vial] 1,000 mcg IM [id number] 10/24/19 Levothyroxine Sodium 88 mcg PO DAILY 10/24/19 History of Present Illiness History of Present Illness: This patient is a 49 yo woman recently diagnosed with COVID-19 at an urgent care via a rapid test. She was admitted to [facility] with SOB and worsening oxygenation. She has been maintained on the COVID floor with higher oxygen requirements of 100% on bipap. She appears comfortable although somewhat tachypnic. She tends to desaturate to 75-85% with movement. She is not needing intubation at this time but with no reserve and on 100% the next step is intubation. Other comorbidities include recently dignosed hairy cell leukemia for which she has had no treatment. She has had some mild hemoptysis, far under 200cc/day consistent with a lung infection. At this point she is meeting ICU criteria and may progress towards intubation. The patient was placed on BIPAP and was tolerating well until 10/24 when she required to be proned to keep her saturations elevated. On the patient was noted to have low oxygen saturations and the discovered the patient had vomited in her BIPAP mask and at this point the decision was made to intubate due to hypoxic state. The patient was intubated by a ENGRAVER JEWELRY and despite ventilation efforts was unable to keep her sats above 85 systolic. The patient was unable to maintain a pulse despite several resuscitative efforts and was unable to oxygenate and her was called and present at bedside during the last resuscitative effort and at that time made her a DNR. The patient was pronounced at 0100. Hospital Course Hospital Course: his patient is a 49 yo woman recently diagnosed with COVID-19 at an urgent care via a rapid test. She was admitted to [facility] with SOB and worsening oxygenation. She has been maintained on the COVID floor with higher oxygen requirements of 100% on bipap. She appears comfortable although somewhat tachypnic. She tends to desaturate to 75-85% with movement. She is not needing intubation at this time but with no reserve and on 100% the next step is intubation. Other comorbidities include recently dignosed hairy cell leukemia for which she has had no treatment. She has had some mild hemoptysis, far under 200cc/day consistent with a lung infection. At this point she is meeting ICU criteria and may progress towards intubation. The patient was placed on BIPAP and was tolerating well until 10/24 when she required to be proned to keep her saturations elevated. On the patient was noted to have low oxygen saturations and the discovered the patient had vomited in her BIPAP mask and at this point the decision was made to intubate due to hypoxic state. The patient was intubated by a ENGRAVER JEWELRY and despite ventilation efforts was unable to keep her sats above 85 systolic. The patient was unable to maintain a pulse despite several resuscitative efforts and was unable to oxygenate and her was called and present at bedside during the last resuscitative effort and at that time made her a DNR. The patient was pronounced at 0100. Physical Exam Vital Signs: Temp Pulse Resp BP Pulse Ox 97.2 F 125 H 27 H 104/70 32 L 10/27/19 00:00 10/26/19 20:50 10/27/19 00:00 10/26/19 22:57 10/27/19 00:00 Intake & Output 10/25/19 10/26/19 10/27/19 06:59 06:59 06:59 Intake Total 581 1465 411 Output Total 1250 770 480 Balance -669 695 -69 Weight 95.2 kg 100.8 kg General appearance: ABSENT: no acute distress, cooperative, disheveled, hard of hearing, mild distress, morbidly obese, obese, severe distress, thin, well- developed, well-nourished, other - patient Head exam: ABSENT: atraumatic, normocephalic, other Eye exam: ABSENT: conjunctival injection, conjunctiva pink, conjunctiva pale, EOMI, nystagmus, periorbital swelling, PERRLA, scleral icterus, other Ear exam: ABSENT: bleeding, drainage, normal external ear exam, TM's normal bilaterally, other Mouth exam: ABSENT: dry mucosa, laceration, moist, neck supple, tongue midline, other Teeth exam: ABSENT: dental caries, dental tenderness, edentulous, poor dentation, other Throat exam: ABSENT: post pharyngeal erythema, tonsillar erythema, tonsillar exudate, tonsillogmegaly, other Neck exam: ABSENT: carotid bruit, full ROM, JVD, lymphadenopathy, meningismus, tenderness, thyromegaly, tracheal deviation, tracheostomy, other Respiratory exam: ABSENT: accessory muscle use, chest wall tenderness, clear to auscultation marco antonio, crackles, decreased breath sounds, prolonged expiratory phas, rales, retraction, rhonchi, stridor, symmetrical, tachypnea, unlabored, wheezes, other Cardiovascular exam: ABSENT: bradycardia, clicks, diastolic murmur, gallop, irregular rhythm, RRR, rubs, +S1, +S2, systolic murmur, tachycardia, other Pulses: ABSENT: normal carotid pulses, normal radial pulses, normal femoral pulses, normal dorsalis pedis pul, +1 pedal pulses bilateral, +2 pedal pulses bilateral, other Vascular exam: ABSENT: normal capillary refill, pallor, other GI/Abdominal exam: ABSENT: ascites, diminished bowel sounds, distended, firm, guarding, hernia, hyperactive bowel sounds, hypoactive bowel sounds, mass, Harris's sign, normal bowel sounds, organolmegaly, rebound, rigid, soft, tenderness, other Rectal exam: ABSENT: deferred, black stool, bloody stool, decreased rectal tone, fecal impaction, heme (-) stool, heme (+) stool, hemorrhoids, laceration, mass, normal inspection, normal prostate, normal rectal tone, prostate enlargement, prostate tenderness, tenderness, other Gentrourinary exam: ABSENT: ecchymosis, erythema, lacerations, lesions, scrotal swelling, testicular tenderness, urethral discharge, indwelling catheter, other Extremities exam: ABSENT: calf tenderness, clubbing, full ROM, joint swelling, pedal edema, tenderness, +1 edema, +2 edema, other Musculoskeletal exam: ABSENT: ambulatory, deformity, dislocation, full ROM, normal inspection, tenderness, other Neurological exam: ABSENT: alert, altered, awake, oriented to person, oriented to place, oriented to time, oriented to situation, reflexes normal, abnormal gait, ataxia, CN II-XII grossly intact, motor sensory deficit, normal gait, aphasic, other Psychiatric exam: ABSENT: agitated, anxious, appropriate affect, depressed, flat affect, homicidal ideation, manic, normal mood, suicidal ideation, unusual affect, other Focused psych exam: ABSENT: catatonic, delusional, euphoric, flight of ideas, internal stimuli, paranoid, pressured speech, psychomotor agitation, restlessness, other Skin exam: ABSENT: abrasion, cyanosis, dry, erythema, intact, jaundice, mottled, normal color, pallor, petechiae, rash, skin tears, urticaria, vesicles, warm, other Results Laboratory Results: WBC 1.8 10^3/uL (4.0-10.5) L 10/26/19 03:21 RBC 2.33 10^6/uL (3.72-5.28) L 10/26/19 03:21 Hgb 8.2 g/dL (12.0-15.5) L 10/26/19 03:21 Hct 24.1 % (36.0-47.0) L 10/26/19 03:21 MCV 104 fl (80-97) H 10/26/19 03:21 MCH 35.4 pg (27.0-33.4) H 10/26/19 03:21 MCHC 34.2 g/dL (32.0-36.0) 10/26/19 03:21 RDW 17.9 % (11.5-14.0) H 10/26/19 03:21 Plt Count 126 10^3/uL (150-450) L 10/26/19 03:21 Lymph % (Auto) Not Reportable 10/26/19 03:21 [place] % (Auto) Not Reportable 10/26/19 03:21 Eos % (Auto) Not Reportable 10/26/19 03:21 Baso % (Auto) Not Reportable 10/26/19 03:21 Absolute Neuts (auto) Not Reportable 10/26/19 03:21 Absolute Lymphs (auto) Not Reportable 10/26/19 03:21 Absolute Monos (auto) Not Reportable 10/26/19 03:21 Absolute Eos (auto) Not Reportable 10/26/19 03:21 Absolute Basos (auto) Not Reportable 10/26/19 03:21 Total Counted 50 10/26/19 03:21 Seg Neutrophils % Not Reportable 10/26/19 03:21 Seg Neuts % (Manual) 56 % (42-78) 10/26/19 03:21 Band Neutrophils % 6 % (3-5) H 10/25/19 05:03 Lymphocytes % (Manual) 36 % (13-45) 10/26/19 03:21 Atypical Lymphs % 14 % (0) 10/24/19 05:32 Monocytes % (Manual) 8 % (3-13) 10/26/19 03:21 Eosinophils % (Manual) 0 % (0-6) 10/26/19 03:21 Basophils % (Manual) 0 % (0-2) 10/26/19 03:21 Abs Neuts (Manual) 1.0 10^3/uL (1.7-8.2) L 10/26/19 03:21 Abs Lymphs (Manual) 0.6 10^3/uL (0.5-4.7) 10/26/19 03:21 Abs Monocytes (Manual) 0.1 10^3/uL (0.1-1.4) 10/26/19 03:21 Absolute Eos (Manual) 0.0 10^3/uL (0.0-0.6) 10/26/19 03:21 Abs Basophils (Manual) 0.0 10^3/uL (0.0-0.2) 10/26/19 03:21 Nucleated RBCs 2 /100 WBC (0) 10/26/19 03:21 Toxic Granulation 1+ 10/25/19 05:03 Clumped Platelets PRESENT 10/24/19 05:32 Platelet Comment DECREASED 10/26/19 03:21 Polychromasia SLIGHT 10/24/19 05:32 Poikilocytosis SLIGHT 10/26/19 03:21 Anisocytosis 2+ 10/26/19 03:21 Macrocytosis 1+ 10/26/19 03:21 Ovalocytes SLIGHT 10/26/19 03:21 Helmet Cells SLIGHT 10/25/19 05:03 PT 16.0 SEC (11.4-15.4) H 10/24/19 13:27 INR 1.27 10/24/19 13:27 APTT 29.3 SEC (23.5-35.8) 10/24/19 22:11 Fibrinogen 842 mg/dL (209-497) H 10/25/19 05:03 D-Dimer 2.25 ug/mL (0.00-0.50) H 10/25/19 05:03 Carbonic Acid 2.86 mmol/L (1.05-1.35) H 10/26/19 22:38 HCO3/H2CO3 Ratio 3:1 10/26/19 22:38 ABG pH 6.68 (7.35-7.45) L* 10/26/19 22:38 ABG pCO2 95.1 mmHg (35-45) H* 10/26/19 22:38 ABG pO2 48.3 mmHg (80-100) L 10/26/19 22:38 ABG HCO3 10.9 mmol/L (20-24) L 10/26/19 22:38 ABG Total CO2 13.8 mmol/L (21-25) L 10/26/19 22:38 ABG O2 Saturation 41.2 % (94-98) L 10/26/19 22:38 ABG Base Excess -25.2 mmol/L 10/26/19 22:38 FiO2 100% 10/26/19 22:38 Sodium 147.4 mmol/L (137-145) H 10/26/19 22:55 Potassium 5.9 mmol/L (3.6-5.0) H D 10/26/19 22:55 Chloride 103 mmol/L (98-107) 10/26/19 22:55 Carbon Dioxide 19 mmol/L (22-30) L 10/26/19 22:55 Anion Gap 25 (5-19) H 10/26/19 22:55 BUN 38 mg/dL (7-20) H 10/26/19 22:55 Creatinine 1.46 mg/dL (0.52-1.25) H 10/26/19 22:55 Est GFR ( Amer) 46 (>60) L 10/26/19 22:55 Est GFR (MDRD) Non-Af 38 (>60) L 10/26/19 22:55 Glucose 299 mg/dL (75-110) H 10/26/19 22:55 Lactic Acid 1.4 mmol/L (0.7-2.1) 10/25/19 10:08 Calcium 11.6 mg/dL (8.4-10.2) H 10/26/19 22:55 Magnesium 3.6 mg/dL (1.6-2.3) H 10/26/19 22:55 Ferritin 248.00 ng/mL (11.1-264.0) 10/24/19 05:32 Total Bilirubin 1.0 mg/dL (0.2-1.3) 10/26/19 22:55 Direct Bilirubin 0.5 mg/dL (0.0-0.4) H 10/26/19 22:55 Neonat Total Bilirubin Not Reportable 10/26/19 22:55 Neonat Direct Bilirubin Not Reportable 10/26/19 22:55 Neonat Indirect Bili Not Reportable 10/26/19 22:55 AST 82 U/L (14-36) H 10/26/19 22:55 ALT 28 U/L (<35) 10/26/19 22:55 Alkaline Phosphatase 61 U/L (38-126) 10/26/19 22:55 Lactate Dehydrogenase 362 U/L (120-246) H 10/24/19 09:51 Creatine Kinase 525 U/L (30-135) H 10/26/19 03:21 Troponin I 0.048 ng/mL 10/24/19 18:28 C-Reactive Protein 498.6 mg/L (<10.0) H 10/25/19 10:08 NT-Pro-B Natriuret Pep 1590 pg/mL (<125) H 10/24/19 05:32 Total Protein 4.6 g/dL (6.3-8.2) L 10/26/19 22:55 Albumin 2.2 g/dL (3.5-5.0) L 10/26/19 22:55 Urine Color EJAN-PAUL 10/26/19 03:55 Urine Appearance TURBID 10/26/19 03:55 Urine pH 5.0 (5.0-9.0) 10/26/19 03:55 Ur Specific [place] 1.031 10/26/19 03:55 Urine Protein 100 mg/dL (NEGATIVE) H 10/26/19 03:55 Urine Glucose (UA) NEGATIVE mg/dL (NEGATIVE) 10/26/19 03:55 Urine Ketones NEGATIVE mg/dL (NEGATIVE) 10/26/19 03:55 Urine Blood SMALL (NEGATIVE) H 10/26/19 03:55 Urine Nitrite NEGATIVE (NEGATIVE) 10/26/19 03:55 Urine Bilirubin NEGATIVE (NEGATIVE) 10/26/19 03:55 Urine Urobilinogen 4.0 mg/dL (<2.0) H 10/26/19 03:55 Ur Leukocyte Esterase NEGATIVE (NEGATIVE) 10/26/19 03:55 Urine WBC (Auto) 14 /HPF 10/26/19 03:55 Urine RBC (Auto) 22 /HPF 10/26/19 03:55 Urine Bacteria (Auto) 2+ /HPF 10/26/19 03:55 Squamous Epi Cells Auto 2 /HPF 10/26/19 03:55 Urine Mucus (Auto) MOD /LPF 10/26/19 03:55 Urine Ascorbic Acid 40 (NEGATIVE) H 10/26/19 03:55 Time Trough Drawn 2255 10/26/19 22:55 Vancomycin Trough < 5.0 ug/mL (5.0-20.0) L 10/26/19 22:55 Influenza A (Rapid) NEGATIVE (NEGATIVE) 10/24/19 09:51 Influenza B (Rapid) NEGATIVE (NEGATIVE) 10/24/19 09:51 Slides for Path Review PATHOLOGIST REVIEWED 10/25/19 05:03 Blood Type A POSITIVE 10/24/19 15:34 Antibody Screen NEGATIVE 10/24/19 15:34 10/24/19 10/24/19 10/24/19 05:32 05:32 13:27 Troponin I 0.073 0.068 NT-Pro-B Natriuret Pep 1590 H 10/24/19 18:28 Troponin I 0.048 NT-Pro-B Natriuret Pep Impressions: Chest X-Ray 10/24/19 00:00 IMPRESSION: Unchanged bilateral pneumonia. Chest/Abdomen CTA 10/24/19 07:48 IMPRESSION: 1. Extensive multifocal bilateral areas of consolidation and ground-glass attenuation compatible with infectious/ inflammatory etiology, including Covid-19 pneumonia. 2. No pulmonary embolus. 3. Splenomegaly. Chest X-Ray 10/26/19 06:00 IMPRESSION: Increasing bilateral alveolar airspace disease. Chest X-Ray 10/26/19 21:44 IMPRESSION: Interval intubation and placement of an enteric tube. Other findings are grossly stable copyright 2011 [employer]- All Rights Reserved Plan Critical Time: 45 Level of Care: ICU - patient at 0100 Stroke Is this a Stroke Patient?: No Acute Heart Failure Is this a Heart Failure Patient?: No
[2019-10-27] MEDS: CEFEPIME HCL 2 GM in DEXTROSE 5%-WATER 50 ML IV SCH (04:52)
[2019-10-27] MEDS ORDERED: LEVOTHYROXINE SODIUM INJ/PF 0.1 MG SDV IV SCH (06:00)
[2019-10-27] MEDS ORDERED: SUCCINYLCHOLINE CHLORIDE INJ 200 MG/10 ML VIAL IV ONE (06:00)
[2019-10-27] MEDS ORDERED: PROPOFOL INJ 200 MG/20 ML VIAL IV ONE (06:00)
== END 2019-10-27 01:00 | disposition expired | DRG 999 ==
LOC: ER 05:15 → EH 12:56 → 3N 15:32 → ICU 10-25 13:24
PROVIDERS: ADMIT Internal Medicine; ATTEND Anesthesiology
PROC: XW033E5 Introduction of Remdesivir Anti-infective into Peripheral Vein, Percutaneous Approach, New Technology Group 5 (ICD-10-PCS; principal; 2019-10-24)
PROC: XW13325 Transfusion of Convalescent Plasma (Nonautologous) into Peripheral Vein, Percutaneous Approach, New Technology Group 5 (ICD-10-PCS; 2019-10-24)
PROC: XW13325 Transfusion of Convalescent Plasma (Nonautologous) into Peripheral Vein, Percutaneous Approach, New Technology Group 5 (ICD-10-PCS; 2019-10-25)
PROC: XW13325 Transfusion of Convalescent Plasma (Nonautologous) into Peripheral Vein, Percutaneous Approach, New Technology Group 5 (ICD-10-PCS; 2019-10-26)
PROC: 0BH17EZ Insertion of Endotracheal Airway into Trachea, Via Natural or Artificial Opening (ICD-10-PCS; 2019-10-27)
DX: U07.1 COVID-19 (principal); J96.01 Acute respiratory failure with hypoxia; J12.89 Other viral pneumonia; C91.40 Hairy cell leukemia not having achieved remission; R04.2 Hemoptysis; E87.1 Hypo-osmolality and hyponatremia; E03.9 Hypothyroidism, unspecified; R79.89 Other specified abnormal findings of blood chemistry; Z66 Do not resuscitate; E66.01 Morbid (severe) obesity due to excess calories; M47.9 Spondylosis, unspecified; F32.9 Major depressive disorder, single episode, unspecified; R50.81 Fever presenting with conditions classified elsewhere; Z86.19 Personal history of other infectious and parasitic diseases; Z68.39 Body mass index [BMI] 39.0-39.9, adult
CPT/HCPCS: 31500; 36415; 36430; 36600; 71045; 71275; 80048; 80053; 80202; 81001; 82550; 82728; 82803; 83605; 83615; 83735; 83880; 84484; 85025; 85379; 85384; 85610; 85730; 86140; 86850; 86900; 86901; 87040; 87070; 87804; 92950; 93005; 93010; 94002; 94640; 94660; 96365; 96366; 96368; 96375; 99291; J0610; C9113; J0171; J0330; J0456; J0461; J0692; J0696; J1100; J1644; J2060; J2405; J2704; J3370; J3490; J7030; J7050; J7060; J7613